=== PATIENT | male | born 2000 | race Caucasian/White ===

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

== ENCOUNTER → 2019-02-01 11:10 | Outpatient (CLI) | payer OTHER, SELFPAY ==
[2019-02-01 12:50] LABS: Thyroid Stim Hormone (TSH) 2.51 uIU/mL (0.358-3.74)
[2019-02-02 17:14] LABS: Anti-Thyroglobulin AB < 1.0 IU/mL (0.0-0.9); Thyroglobulin, Serum Qt. 1.4 ng/mL (1.4-29.2)
== END ==
PROVIDERS: Family Provider Pediatrics; PCP Pediatrics
DX: C73 Malignant neoplasm of thyroid gland (principal)
CPT/HCPCS: 36415; 84432; 84443; 86800

== ENCOUNTER → 2019-06-27 11:29 | Outpatient (CLI) | payer OTHER, SELFPAY ==
[2019-06-27 12:46] LABS: Thyroid Stim Hormone (TSH) 2.06 uIU/mL (0.358-3.74)
[2019-06-29 11:28] LABS: Anti-Thyroglobulin AB < 1.0 IU/mL (0.0-0.9); Thyroglobulin, Serum Qt. 1.6 ng/mL (1.4-29.2)
== END ==
PROVIDERS: PCP Pediatrics
DX: C73 Malignant neoplasm of thyroid gland (principal)
CPT/HCPCS: 36415; 84432; 84443; 86800

== ENCOUNTER 2020-08-20 10:32 | Outpatient (RCR) | payer OTHER, SELFPAY | END 2020-09-24 23:59 | LOC: IMMUN 10:32 | PROVIDERS: PCP Pediatrics; Visit Provider Family Medicine | DX: Z23 Encounter for immunization (principal) | CPT/HCPCS: 0001A; 0002A; 91300 ==

== ENCOUNTER → 2020-10-26 11:39 | Outpatient (CLI) | payer OTHER, SELFPAY ==
[2020-10-26 12:39] LABS: Thyroid Stim Hormone (TSH) 1.43 uIU/mL (0.358-3.74)
[2020-10-29 11:50] LABS: Anti-Thyroglobulin AB < 1.0 IU/mL (0.0-0.9); Thyroglobulin, Serum Qt. 1.8 ng/mL (1.4-29.2)
== END ==
PROVIDERS: PCP Pediatrics
DX: C73 Malignant neoplasm of thyroid gland (principal)
CPT/HCPCS: 36415; 84432; 84443; 86376; 86800

== ENCOUNTER → 2022-07-20 | Outpatient (CLI) | payer OTHER, SELFPAY ==
[2022-07-20 07:23] LABS: Anion Gap 3 (5-15); BUN 16 mg/dL (7-18); BUN/Creat Ratio 13.1 RATIO (10-20); Calcium,Total 9.7 mg/dL (8.5-10.1); Chloride 105 mmol/L (98-107); Cholesterol 187 mg/dL (200); Creatinine, Serum 1.22 mg/dL (0.70-1.30); EST Glomerular Filtration Rate 78 mL/min (>60); Est Glom Filt Rate - Afr Amer 95 mL/min (>60); Glucose 129 mg/dL (74-106); High Density Lipoprotein 51 mg/dL; Potassium 3.9 mmol/L (3.5-5.1); Sodium Level 139 mmol/L (136-145); Thyroid Stim Hormone (TSH) 2.67 uIU/mL (0.358-3.74); Triglycerides 68 mg/dL; Very Low Density Lipoprotein 14 mg/dL (5-40)
[2022-07-21 19:46] LABS: Thyroglobulin Antibody < 1.0 IU/mL (0.0-0.9)
== END | disposition home or self-care (01) ==
LOC: LAB 06:33
PROVIDERS: PCP Family Medicine
DX: Z00.00 Encounter for general adult medical examination without abnormal findings (principal); C73 Malignant neoplasm of thyroid gland; E89.0 Postprocedural hypothyroidism
CPT/HCPCS: 36415; 80048; 80061; 84439; 84443; 84481; 86800

== ENCOUNTER → 2022-08-04 | Outpatient (CLI) | payer OTHER, SELFPAY ==
--- NOTE | 2022-08-04 17:39 | US_ITS ---
STUDY: SCROTUM ULTRASOUND REASON FOR EXAM: Male, 21 years old. SCROTAL MASS- LT TECHNIQUE: Ultrasound evaluation of the scrotum was performed with color Doppler and static caceres-scale imaging. COMPARISON: None. FINDINGS: RIGHT TESTICLE INTRATESTICULAR: There is a normal size of the right testicle. The right testicle measures 5 cm x 2.9 cm x 2.1 cm. There is a homogenous echotexture. There is normal arterial and normal venous vascularity. There is no demonstrated right testicular mass or cyst. EXTRATESTICULAR: The epididymis is normal in size. The epididymis head measures 1.2 cm x 0.6 cm x 0.7 cm. There is normal vascularity of the epididymis. There is no demonstrated epididymal cystic structure. There is no demonstrated hydrocele. There is no demonstrated varicocele. There is no demonstrated extratesticular mass or cyst. LEFT TESTICLE INTRATESTICULAR: There is a normal size of the left testicle. The left testicle measures 4.1 cm x 3.2 cm x 1.9 cm. There is a homogenous echotexture. There is normal arterial and normal venous vascularity. There is no demonstrated left testicular mass or cyst. EXTRATESTICULAR: The epididymis is normal in size. The epididymis head measures 1 cm x 0.7 cm x 0.5 cm. There is normal vascularity of the epididymis. There is no demonstrated epididymal cystic structure. There is no demonstrated hydrocele. There are prominent extratesticular veins consistent with a varicocele. There is no demonstrated extratesticular mass or cyst. US/Testicular with Arterial Flow IMPRESSION: The left testicular mass corresponds to a varicocele. Electronically Signed: Naveed Boland MD at 15:11 EDT ,
== END | disposition home or self-care (01) ==
LOC: US 17:36
PROVIDERS: PCP Family Medicine; Referring Provider Family Medicine; Visit Provider Family Medicine
DX: N50.89 Other specified disorders of the male genital organs (principal)
CPT/HCPCS: 76870; 93976

== ENCOUNTER → 2024-10-02 | Outpatient (CLI) | payer BC, SELFPAY ==
[2024-10-02 18:29] LABS: PTHIN 77 pg/mL (11-61)
[2024-10-02 18:36] LABS: Anion Gap 10 (5-15); BUN 15 mg/dL (4-19); BUN/Creat Ratio 12.8 RATIO (10-20); Calcium,Total 9.3 mg/dL (7.6-11.0); Carbon Dioxide 27.2 mmol/L (21.0-32.0); Chloride 105 mmol/L (98-108); Cholesterol 178 mg/dL (<=200); Creatinine, Serum 1.13 mg/dL (0.70-1.20); EST Glomerular Filtration Rate 93 (>60); Glucose 98 mg/dL (70-99); High Density Lipoprotein 41 mg/dL; Low Density Lipoprotein Calc. 108 mg/dL; Potassium 4.3 mmol/L (3.3-5.1); Sodium Level 142 mmol/L (133-145); Triglycerides 148 mg/dL; Very Low Density Lipoprotein 30 mg/dL (5-40); cholesterol:hdl ratio screen 4.35
--- OUTSIDE RECORDS SUMMARY | 2024-10-02 23:11 | XMS RPT_ITS | CCD ---
Author Organization [facility] Care Team Providers Care Warehouse Administrative Assistant Name Role Phone JNOO HUERTA Attending UnavailGRAYSON Gomez Primary Care Unavailable Grayson Archuleta MD Primary Care Provider [phone] SHARON TIJERINA Attending Unavailable Ced Dunlap Primary Care Unavailable SHARON TIJERINA Referring Unavailable Ced Dunlap Referring Unavailable Ced Dunlap Attending Ced Lockett Primary Care Unavailable Grayson Archuleta MD Primary Care Provider [phone] Grayson Archuleta MD Primary Care Provider [phone] Unavailable Primary Care Provider UnavailJACQUIE iMller Attending GRAYSON Oglesby Primary Care Unavailable JACQUIE FELIPE Referring GRAYSON Oglesby Primary Care Unavailable Medications Current Medications Medication Drug Class(es) Dates Sig (Normalized) Sig (Original) calcium phosphate dibas/vit D3 (VITAMIN D, WITH CALCIUM, ORAL) (9 sources) calcium phosphat e dibas/vit D3 (VITAMIN D, WITH CALCIUM, ORAL) Take by mouth. Active calcium phosphat e dibas/vit D3 (VITAMIN D, WITH CALCIUM, ORAL) Take by mouth. 0 Active Comment on above: Take by mouth. cholecalciferol, vitamin D3, (VITAMIN D3 ORAL) (6 sources) cholecalciferol, vitamin D3, (VITAMIN D3 ORAL) Take by mouth. Active cholecalciferol, vitamin D3, (VITAMIN D3 ORAL) Take by mouth. 0 Active Comment on above: Take by mouth. levothyroxine sodium 0.075 mg oral tablet (11 sources) l-Thyroxine Start: 07-03-2022 End: 08-18-2024 levothyroxine (SYNTHROID) 75 mcg tablet Take 1 tablet by mouth once daily. Except Wednesday take 2 tablets. (total 8 tabletsweekly) 32 tablet 1 08/18/2024 Active Start: 03-22-2021 End: 03-26-2022 levothyroxine (SYNTHROID) 75 mcg tablet Take 1 tablet by mouth once daily. Except Wednesday take 2 tablets. (total 8 tabletsweekly) 96 tablet 0 03/26/2022 Active Comment on above: Take 1 tablet by kobi th once daily. Except Wednesday take 2 tablets. (total 8 tabletsweekly) Take 1 tablet by kobi th once daily. Except Wednesday take 2 tablets. (total 8 tablets weekly) Multivitamin capsule (9 sources) take 1 capsule by mouth once daily Multivitamin capsule Take 1 capsule by mouth once daily. Active take 1 capsule by mouth once ghulam ly Multivitamin capsule Take 1 capsule by mouth once daily. 0 Active Comment on above: Take 1 capsule by mo uth once daily. Problems Active Problems Problem Classification Problem Date Documented Da te Episodic/Chronic Cancer of thyroid (17 sources) Papillary thyroid carcinoma; Translations: [Malignant neoplasm of thyroid gland] Onset: 07-03-2019 07-03-2019 Chronic Other male genital disorders (1 source) Other specified disorders of the male genital organs; Translations: [Other specified disorders of the male genital organs] Onset: 08-04-2022 Episodic Past or Other Problems Problem Classification Problem Date Documented Da te Episodic/Chronic Neoplasms of unspecified nature or uncertain behavior (4 sources) Neoplasm of uncertain behavior of skin; Translations: [Neoplasm of uncertain behavior of skin] Onset: 10-29-2011 Resolved: 10-24-2013 10-24-2013 Episodic Other upper respiratory disease (9 sources) Epistaxis; Translations: [Epistaxis] Onset: 10-25-2014 10-25-2014 Episodic Thyroid disorders (4 sources) Uninodular goiter; Translations: [Nontoxic single thyroid nodule] Onset: 11-14-2018 Resolved: 07-03-2019 07-03-2019 Chronic Results Test Name Value Interpretation Reference Range Facility [facility] 08-18-2024 IRAJ Telephone (ENSUMN) HANNAH ALBRIGHT ([id number]) 89 M Date Time Provider Department 08/18/24 JACQUIE FELIPE During your visit today, we recorded the following information about you: Leila Granados 08/18/2024 3:04 PM Signed Pt is requesting a refill on synthroid. He hasn't see his pcp in over a year and they can't refill it. He is totally out of it for about one week. Katrina Ward MD 08/18/2024 3:39 PM Signed Addended by: KATRINA WARD on: 08/18/2024 03:39 PM Modules accepted: Delmy Red 08/18/2024 4:33 PM Signed Called pt and advised of one month refill. Advised that his PCP will need to monitor his labwork and refills moving forward. Pt has appt this month with PCP and voices understanding. Delmy Hollingsworth RN Allergies As of Date: 08/18/2024 (No Known Allergies) Date Reviewed: 11/01/2023 Reviewed by: Missy Brewster OCCA - Fully Assessed Reason for Visit: Refill Request [94] Cmt: Pt is requesting a refill on synthroid. He hasn't see his pcp in over a year and they can't refill it. He is totally out of it for about one week. Order(s):levothyroxine (SYNTHROID) 75 mcg tabletTake 1 tablet by mouth once daily. Except Wednesday take 2 tablets. (total 8 tabletsweekly)Disp: 32 tabletRfl: 1 Prescriptions as of 08/18/2024 - levothyroxine (SYNTHROID) 75 mcg tablet Take 1 tablet by mouth once daily. Except Wednesday take 2 tablets. (total 8 tabletsweekly) - cholecalciferol, vitamin D3, (VITAMIN D3 ORAL) Take by mouth. - calcium phosphate dibas/vit D3 (VITAMIN D, WITH CALCIUM, ORAL) Take by mouth. - Multivitamin capsule Take 1 capsule by mouth once daily. Problem List As Of Date 08/18/2024 Noted Resolved Neoplasm of uncertain behavior of skin [D48.5] 10/29/2011 10/24/2013 Epistaxis, recurrent [R04.0] 10/25/2014 Solitary thyroid nodule [E04.1] 11/14/2018 07/03/2019 Papillary thyroid carcinoma (HCC) [C73] 07/03/2019 Prescriptions ordered this encounter Disp Refills Start End LEVOTHYROXINE 75 MCG TABLET 32 t* 1 08/18/2024 Sig: Take 1 tablet by mouth once daily. Except Wednesday take 2 tablets. (total 8 tabletsweekly) Medications Discontinued During This Encounter Prescriptions - levothyroxine (SYNTHROID) 75 mcg tablet (Discontinued) Take 1 tablet by mouth once daily. Except Wednesday take 2 tablets. (total 8 tabletsweekly) Encounter Status:Closed by LEILA GRANADOS on 08/18/24 [facility] CNOVon 11-01-2023 CNOV Office Visit (ENSUMN ) HANNAH ALBRIGHT ([id number]) 89 M Date Time Provider Department 11/01/23 2:45 PM JACQUIE FELIPE During your visit today, we recorded the following information about you: Pulse Blood pressure Weight Height 80/minute 141/85 75.5 kg 1.855 m Missy Brewster OCCA 11/01/2023 2:40 PM Signed Thank you for choosing the [facility] Department of Endocrinology, Diabetes and Metabolism. Did you know that you need to call 48 hours in advance of your scheduled visit, if you are unable to make your appointment? The Endocrinology and Metabolism [place] thanks you for your commitment, because patients not showing to their appointment results in a lost opportunity for patients to receive [facility] health care at the [facility]. To Cancel an appointment, please choose one of the following: - Call the Appointment Call Center at [phone] - From [facility], Go to Appointments - Cancel Appts If cancelling, consider your need to reschedule to prevent further delays in your care. To Schedule an appointment, please choose one of the following: - Call the Appointment Call Center at [phone] - From [facility], Go to Appointments - Request an Appt Jacquie Felipe MD 11/03/2023 8:45 AM Signed I saw your patient Hannah Albright in longitudinal follow-up for papillary thyroid cancer. He is now 5 years after undergoing a left thyroid lobectomy for a 1.5 cm contained papillary cancer. Given this finding, he did not require radioiodine ablation. He is on 75 mcg thyroid hormone tablets taking a total of 8 on a weekly basis. He has felt well on this dose with no hyperthyroid type symptoms. A TSH done on 10/30/2023 measured 2.000. I feel that this level is appropriate for him. In the office today he is well-appearing. His transverse cervical incision remains well-healed. Palpation of the neck reveals no palpable tissue within the left thyroid bed. The right lobe is barely palpable. I can appreciate no nodularity nor any palpable neck nodes. Ultrasound examination was performed in the office. This confirms surgical absence of the left thyroid lobe and isthmus. The right lobe is of a normal size and normal background echotexture. There are no thyroid nodules. I can appreciate no worrisome lymph nodes in either central neck compartment nor in either jugular chain. I am pleased that he continues to do well without evidence of recurrent disease. I plan to see him back in the office in 1 years time with a TSH prior to that visit. I appreciate being involved in the care of your patient and please feel free to contact me should you have additional questions. Sincerely, Jacquie Felipe MD Allergies As of Date: 11/01/2023 (No Known Allergies) Date Reviewed: 11/01/2023 Reviewed by: Missy Brewster OCCA - Fully Assessed Reason for Visit: Follow Up [171] Primary Visit Diagnosis:Thyroid cancer (HCC) [C73] Other Visit Diagnosis:Papillary thyroid carcinoma (HCC) [C73] Order(s):US THYROID/PARATHYROID (POC) ENDO USE ONLY [8304320] Order #: [id number]. #:[id number]: 1 Prescriptions as of 11/03/2023 - cholecalciferol, vitamin D3, (VITAMIN D3 ORAL) Take by mouth. - levothyroxine (SYNTHROID) 75 mcg tablet Take 1 tablet by mouth once daily. Except Wednesday take 2 tablets. (total 8 tabletsweekly) - calcium phosphate dibas/vit D3 (VITAMIN D, WITH CALCIUM, ORAL) Take by mouth. - Multivitamin capsule Take 1 capsule by mouth once daily. Problem List As Of Date 11/01/2023 Noted Resolved Neoplasm of uncertain behavior of skin [D48.5] 10/29/2011 10/24/2013 Epistaxis, recurrent [R04.0] 10/25/2014 Solitary thyroid nodule [E04.1] 11/14/2018 07/03/2019 Papillary thyroid carcinoma (HCC) [C73] 07/03/2019 Other instructions from your clinician: Thank you for choosing the [facility] Department of Endocrinology, Diabetes and Metabolism. Did you know that you need to call 48 hours in advance of your scheduled visit, if you are unable to make your appointment? The End[facility]inology [facility] Metabolism [place] thanks you for your commitment, because patients not showing to their appointment results in a lost opportunity for patients to receive [facility] health care at the [facility]. To Cancel an appointment, please choose one of the following: - Call the Appointment Call Center at [phone] - From [facility], Go to Appointments - Cancel Appts If cancelling, consider your need to reschedule to prevent further delays in your care. To Schedule an appointment, please choose one of the following: - Call the Appointment Call Center at [phone] - From [facility], Go to Appointments - Request an Appt Disposition: Return in about 1 year (around 10/31/2024). Follow-up and Disposition History for Encounter Date Provider Department Center 11/01/2023 [id number], A (more content not included)... Normal [facility] US Thyroid glandon [facility] Radiology Study observation (narrative) [facility] TSH SerPl-aCncon 10-30-2023 TSH Qn 2.000 m[IU]/L Normal 0.270-4.200 [facility] Comment on above: Order Comment: Speci men Type: BLOOD SPECIMEN Ordering Facility: [facility] Address: [address] [place] [address] Performed By: #### 3 016-3 #### [facility] CLIA [id number] [address] [id number] [place] Testicular with Arterial Facundo won 08-04-2022 Testicular with Arterial Flow [facility] Services [address] [place] [address] Testicular with Arterial Flow MR#: [id number] Acct: [id number] Name: HANNAH ALBRIGHT Rep #: [id number] : 2000 M 21 From: Naveed rangel MD PCP: Dr. Ced Dunlap MD Status: REG CLI Study: Testicular with Arterial Flow Date of Exam: Exam# [id number] Ordering Dr: Ced Dunlap MD STUDY: SCROTUM ULTRASOUND REASON FOR EXAM: Male, 21 years old. SCROTAL MASS- LT TECHNIQUE: Ultrasound evaluation of the scrotum was performed with color Doppler and static caceres-scale imaging. COMPARISON: None. FINDINGS: RIGHT TESTICLE INTRATESTICULAR: There is a normal size of the right testicle. The right testicle measures 5 cm x 2.9 cm x 2.1 cm. There is a homogenous echotexture. There is normal arterial and normal venous vascularity. There is no demonstrated right testicular mass or cyst. EXTRATESTICULAR: The epididymis is normal in size. The epididymis head measures 1.2 cm x 0.6 cm x 0.7 cm. There is normal vascularity of the epididymis. There is no demonstrated epididymal cystic structure. There is no demonstrated hydrocele. There is no demonstrated varicocele. There is no demonstrated extratesticular mass or cyst. LEFT TESTICLE INTRATESTICULAR: There is a normal size of the left testicle. The left testicle measures 4.1 cm x 3.2 cm x 1.9 cm. There is a homogenous echotexture. There is normal arterial and normal venous vascularity. There is no demonstrated left testicular mass or cyst. EXTRATESTICULAR: The epididymis is normal in size. The epididymis head measures 1 cm x 0.7 cm x 0.5 cm. There is normal vascularity of the epididymis. There is no demonstrated epididymal cystic structure. There is no demonstrated hydrocele. There are prominent extratesticular veins consistent with a varicocele. There is no demonstrated extratesticular mass or cyst. US/Testicular with Arterial Flow IMPRESSION: The left testicular mass corresponds to a varicocele. Electronically Signed: Naveed Boland MD at 15:11 EDT , CC: Dr. Ced Dunlap MD Take Out Waitress: Signed Normal [facility] Thyroglobulin Antibodyon TG AB < 1.0 Normal 0.0-0.[address] [facility] Comment on above: Order Comment: LIPID ,TSH,BMP,T3F,T4F FOR DR DUNLAP TSH,THYROGLUBULIN AB FOR DR FELIPE Result Comment: Thyr oglobulin Antibody measured by [employer] Methodology Performed at: - [facility] [address] [id number] Cd Mixer: Yash Hancock PhD, Phone: [phone] Performed By: #### L 500.2500, L506.0400, L500.4100, L501.9520, L3300.7027, L501.14675 #### [facility] [address] [place], [address] Basic Metabolic Profile (BMP )on 07-20-2022 BUN/CRE 13.1 RATIO Normal 10-[address] [facility] Comment on above: Order Comment: PT WA SNT FASTING HAD CEREAL AT 5:15AM LIPID,TSH,BMP,T3F,T4F FOR DR DUNLAP TSH,THYROGLUBULIN AB FOR DR FELIPE Performed By: #### L 500.2500, L506.0400, L500.4100, L501.9520, L3300.7027, L501.98838 #### [facility] [address] [place], [address] CA,Total 9.7 mg/dL Normal 8.5-10.[address] [facility] Comment on above: Order Comment: PT WA SNT FASTING HAD CEREAL AT 5:15AM LIPID,TSH,BMP,T3F,T4F FOR DR DUNLAP TSH,THYROGLUBULIN AB FOR DR FELIPE Performed By: #### L 500.2500, L506.0400, L500.4100, L501.9520, L3300.7027, L501.73968 #### [facility] [address] [place], [address] Chloride [Moles/Vol] 105 mmol/L Normal 98-[address] [facility] Comment on above: Order Comment: PT WA SNT FASTING HAD CEREAL AT 5:15AM LIPID,TSH,BMP,T3F,T4F FOR DR DUNLAP TSH,THYROGLUBULIN AB FOR DR FELIPE Performed By: #### L 500.2500, L506.0400, L500.4100, L501.9520, L3300.7027, L501.08323 #### [facility] [address] [place], [place], [phone] (665) CO2 [Moles/Vol] 31.0 mmol/L Normal 21.0-32.[address] [facility] Comment on above: Order Comment: PT WA SNT FASTING HAD CEREAL AT 5:15AM LIPID,TSH,BMP,T3F,T4F FOR DR DUNLAP TSH,THYROGLUBULIN AB FOR DR FELIPE Performed By: #### L 500.2500, L506.0400, L500.4100, L501.9520, L3300.7027, L501.98925 #### [facility] [address] [place], [place], [phone] ([phone]) Creatinine [Mass/Vol] 1.22 mg/dL Normal 0.70-1.[address] [facility] Comment on above: Order Comment: PT WA SNT FASTING HAD CEREAL AT 5:15AM LIPID,TSH,BMP,T3F,T4F FOR DR DUNLAP TSH,THYROGLUBULIN AB FOR DR FELIPE Result Comment: The validity of the calculated GFR GFRAA in patients over 70 years has not been determined. Clinical correlation is essential. Performed By: #### L 500.2500, L506.0400, L500.4100, L501.9520, L3300.7027, L501.15482 #### [facility] [address] [place], [place], [id number] EST GFR - AA 95 mL/min Normal >[address] [facility] Comment on above: Order Comment: PT WA SNT FASTING HAD CEREAL AT 5:15AM LIPID,TSH,BMP,T3F,T4F FOR DR DUNLAP TSH,THYROGLUBULIN AB FOR DR FELIPE Result Comment: Afri can Uzbek GFR Calc Performed By: #### L 500.2500, L506.0400, L500.4100, L501.9520, L3300.7027, L501.38423 #### [facility] [address] [place], [place], [phone] GAP 3 Low 5-[address] [facility] Comment on above: Order Comment: PT WA SNT FASTING HAD CEREAL AT 5:15AM LIPID,TSH,BMP,T3F,T4F FOR DR DUNLAP TSH,THYROGLUBULIN AB FOR DR FELIPE Performed By: #### L 500.2500, L506.0400, L500.4100, L501.9520, L3300.7027, L501.29133 #### [facility] [address] [place], [place], [phone] GFR/1.73 sq M.predicted among non-blacks MDRD (S/P/Bld) [Vol rate/Area] 78 mL/min/{1.73_m2} Normal >[address] [facility] Comment on above: Order Comment: PT WA SNT FASTING HAD CEREAL AT 5:15AM LIPID,TSH,BMP,T3F,T4F FOR DR DUNLAP TSH,THYROGLUBULIN AB FOR DR FELIPE Result Comment: Non- GFR Calc Performed By: #### L 500.2500, L506.0400, L500.4100, L501.9520, L3300.7027, L501.24534 #### [facility] [address] [place], [address] Glucose [Mass/Vol] 129 mg/dL High 74-106 [facility] Comment on above: Order Comment: PT WA SNT FASTING HAD CEREAL AT 5:15AM LIPID,TSH,BMP,T3F,T4F FOR DR DUNLAP TSH,THYROGLUBULIN AB FOR DR FELIPE Result Comment: Fast ing Glucose result greater than or equal to 126 mg/dL suggests DIABETES MELLITUS per A.D.A. criteria. Performed By: #### L 500.2500, L506.0400, L500.4100, L501.9520, L3300.7027, L501.88961 #### [facility] [address] [place], [address] Potassium [Moles/Vol] 3.9 mmol/L Normal 3.5-5.[address] [facility] Comment on above: Order Comment: PT WA SNT FASTING HAD CEREAL AT 5:15AM LIPID,TSH,BMP,T3F,T4F FOR DR DUNLAP TSH,THYROGLUBULIN AB FOR DR FELIPE Performed By: #### L 500.2500, L506.0400, L500.4100, L501.9520, L3300.7027, L501.51867 #### [facility] [address] [place], [address] Sodium [Moles/Vol] 139 mmol/L Normal 136-145 [facility] Comment on above: Order Comment: PT WA SNT FASTING HAD CEREAL AT 5:15AM LIPID,TSH,BMP,T3F,T4F FOR DR DUNLAP TSH,THYROGLUBULIN AB FOR DR FELIPE Performed By: #### L 500.2500, L506.0400, L500.4100, L501.9520, L3300.7027, L501.94776 #### [facility] [address] [place], [address] Urea nitrogen [Mass/Vol] 16 mg/dL Normal 7-[address] [facility] Comment on above: Order Comment: PT WA SNT FASTING HAD CEREAL AT 5:15AM LIPID,TSH,BMP,T3F,T4F FOR DR DUNLAP TSH,THYROGLUBULIN AB FOR DR FELIPE Performed By: #### L 500.2500, L506.0400, L500.4100, L501.9520, L3300.7027, L501.61328 #### [facility] [address] [place], [address] Basophil percentageon 2022 Chloride [Moles/Vol] 105 mmol/L 98-[address] [facility] Cholesterol [Mass/Vol] 187 mg/dL <[address] [facility] Comment on above: <200 mg/dL Desirable 200-240 mg/dL Borderline >240 mg/dL High Risk Glucose [Mass/Vol] 129 mg/dL 74-106 [facility] Comment on above: Fasting Glucose resu lt greater than or equal to 126 mg/dL suggests DIABETES MELLITUS per A.D.A. criteria. Potassium [Moles/Vol] 3.9 mmol/L 3.5-5.[address] [facility] Sodium [Moles/Vol] 139 mmol/L 136-145 [facility] Triglyceride [Mass/Vol] 68 mg/dL <[address] [facility] Comment on above: The drugs N-Acetylcy steine and Metamizole may falsely depress this assay.Serum Triglycerides Reference Interval Normal <150 mg/dL Borderline high 150 - 199 mg/dL High 200 - 499 mg/dL Very High > or = 500 mg/dL Free T3on 07-20-2022 Free T3 [Mass/Vol] 3.0 pg/mL Normal 2.18-3.98 [facility] Comment on above: Order Comment: PT WA SNT FASTING HAD CEREAL AT 5:15AM LIPID,TSH,BMP,T3F,T4F FOR DR DUNLAP TSH,THYROGLUBULIN AB FOR DR FELIPE Performed By: #### L 500.2500, L506.0400, L500.4100, L501.9520, L3300.7027, L501.42230 #### [facility] [address] [place], [address] Laboratory - Chemistry and C hemistry - challengeon 07-20-2022 CO2 [Moles/Vol] 31.0 mmol/L 21.0-32.[address] [facility] Free T4 [Mass/Vol] 1.10 ng/dL 0.76-1.46 [facility] Urea nitrogen/Creatinin e [Mass ratio] 13.1 mg/mg 10-[address] [facility] Lipid Profileon 07-20-2022 Cholesterol [Mass/Vol] 187 mg/dL Normal [address] [facility] Comment on above: Order Comment: PT WA SNT FASTING HAD CEREAL AT 5:15AM LIPID,TSH,BMP,T3F,T4F FOR DR DUNLAP TSH,THYROGLUBULIN AB FOR DR FELIPE Result Comment: <200 mg/dL Desirable 200-240 mg/dL Borderline >240 mg/dL High Risk Performed By: #### L 500.2500, L506.0400, L500.4100, L501.9520, L3300.7027, L501.32905 #### [facility] [address] [place], [address] Cholesterol in HDL [Mass/Vol] 51 mg/dL Normal [facility] Comment on above: Order Comment: PT WA SNT FASTING HAD CEREAL AT 5:15AM LIPID,TSH,BMP,T3F,T4F FOR DR DUNLAP TSH,THYROGLUBULIN AB FOR DR FELIPE Result Comment: The drugs N-Acetylcysteine and Metamizole may falsely depress this assay. Reference Range HDL <40 mg/dL Low HDL Cholesterol HDL >or= 60 mg/dL High HDL Cholesterol Performed By: #### L 500.2500, L506.0400, L500.4100, L501.9520, L3300.7027, L501.04153 #### [facility] [address] [place], [address] Cholesterol in LDL [Mass/Vol] 122 mg/dL Normal 0-[address] [facility] Comment on above: Order Comment: PT WA SNT FASTING HAD CEREAL AT 5:15AM LIPID,TSH,BMP,T3F,T4F FOR DR DUNLAP TSH,THYROGLUBULIN AB FOR DR FELIPE Performed By: #### L 500.2500, L506.0400, L500.4100, L501.9520, L3300.7027, L501.90190 #### [facility] [address] [place], [place], [phone] Cholesterol in VLDL [Mass/Vol] 14 mg/dL Normal 5-[address] [facility] Comment on above: Order Comment: PT WA SNT FASTING HAD CEREAL AT 5:15AM LIPID,TSH,BMP,T3F,T4F FOR DR DUNLAP TSH,THYROGLUBULIN AB FOR DR FELIPE Performed By: #### L 500.2500, L506.0400, L500.4100, L501.9520, L3300.7027, L501.73665 #### [facility] [address] [place], [place], [phone] Triglyceride [Mass/Vol] 68 mg/dL Normal [facility] Comment on above: Order Comment: PT WA SNT FASTING HAD CEREAL AT 5:15AM LIPID,TSH,BMP,T3F,T4F FOR DR DUNLAP TSH,THYROGLUBULIN AB FOR DR FELIPE Result Comment: The drugs N-Acetylcysteine and Metamizole may falsely depress this assay. Serum Triglycerides Reference Interval Normal <150 mg/dL Borderline high 150 - 199 mg/dL High 200 - 499 mg/dL Very High > or = 500 mg/dL Performed By: #### L 500.2500, L506.0400, L500.4100, L501.9520, L3300.7027, L501.69471 #### [facility] [address] [place], [place], [phone] No Panel Informationon 07-20 Estimated GFR (MDRD) Amer 95 mL/min >[address] [facility] Comment on above: GFR Calc Estimated GFR (MDRD) Non-Af Amer 78 mL/min >[address] [facility] Comment on above: Non- GFR Calc Free Triiodothyronine (T3) pg/dL 3.0 pg/mL 2.18-3.[address] [facility] [facility] [facility] Thyroglobulin Antibody < 1.0 IU/mL 0.0-0.[address] [facility] Comment on above: Thyroglobulin Antibo dy measured by TreatFeedMethodologyPerformed at: CB - [facility] [id number] [place], [place] [id number] Director: Yash Hancock PhD, Phone: [phone] Thyroid Stimulating Hormone (TSH) 2.67 uIU/mL 0.358-3.[address] [facility] Serum or plasma calcium marva urement (mass/volume)on 07-20-2022 Calcium [Mass/Vol] 9.7 mg/dL 8.5-10.1 [facility] Serum or plasma cholesterol in HDL measurement (mass/volume)on 07-20-2022 Cholesterol in HDL [Mass/Vol] 51 mg/dL >[address] [facility] Comment on above: The drugs N-Acetylcy steine and Metamizole may falsely depress this assay. Reference Range HDL <40 mg/dL Low HDL Cholesterol HDL >or= 60 mg/dL High HDL Cholesterol Serum or plasma cholesterol in VLDL measurement (mass/volume)on 07-20-2022 Cholesterol in VLDL [Mass/Vol] 14 mg/dL 5-[address] [facility] Serum or plasma creatinine m easurement (mass/volume)on 07-20-2022 Creatinine [Mass/Vol] 1.22 mg/dL 0.70-1.[address] [facility] Comment on above: The validity of the calculated GFR & GFRAA in patients over 70 years has not been determined. Clinical correlation is essential. Serum or plasma low density lipoprotein (LDL) cholesterol measurement (mass/volume)on 07-20-2022 Cholesterol in LDL [Mass/Vol] 122 mg/dL 0-[address] [facility] Serum or plasma urea nitroge n measurement (mass/volume)on 07-20-2022 Urea nitrogen [Mass/Vol] 16 mg/dL 7-[address] [facility] T4 Free Directon 07-20-2022 T4 FREE DIRECT 1.10 ng/dL Normal 0.76-1.[address] [facility] Comment on above: Order Comment: PT WA SNT FASTING HAD CEREAL AT 5:15AM LIPID,TSH,BMP,T3F,T4F FOR DR DUNLAP TSH,THYROGLUBULIN AB FOR DR FELIPE Performed By: #### L 500.2500, L506.0400, L500.4100, L501.9520, L3300.7027, L501.40222 #### [facility] [address] [place], [place], [address] Thin prep Papanicolaou smear with manual screeningon 07-20-2022 Thin prep Papanicolaou smear with manual screening 3 5-[address] [facility] Thyroid Stim Hormone (TSH)on 07-20-2022 TSH 2.67 uIU/mL Normal 0.358-3.[address] [facility] Comment on above: Order Comment: PT WA SNT FASTING HAD CEREAL AT 5:15AM LIPID,TSH,BMP,T3F,T4F FOR DR DUNLAP TSH,THYROGLUBULIN AB FOR DR FELIPE Performed By: #### L 500.2500, L506.0400, L500.4100, L501.9520, L3300.7027, L501.74268 #### [facility] [address] [place], [place], [address] PROGRESSon 12-23-2018 PROGRESS HNO ID: [id number] Author: Sal Pisano (Fel) Service: Endocrine Surgery Author Type: Fellow Type: Progress Notes Filed: 12/23/2018 8:10 AM Note Text: Subjective: Doing well. No incisional pain. Denies numbness, tingling, nausea. Up and ambulating without difficulty. Voiding well. ? Objective:? T. 36.7??HR 58, RR 16, 119/52 ? General: no acute distress, alert, he is dressed and ambulating in his room. HEENT: incision c/d/i with steristrip in place. Minimal swelling and bruising at superior aspect of incision. Not tender. Pulm: non-labored breathing; voice clear ? Assessment/Plan:?18 year old male, POD#1?s/p left thyroidectomy, hemodynamically stable with adequate pain control? He is doing very well. Ready for discharge home today. The usual discharge instructions were provided verbally and in writing. I also reviewed his home and new medications with him. Follow up has been arranged and communicated to the patient. ? Sal Pisano MD, MPH Endocrine Surgery Fellow [facility] ANES Gaby 12-22-2018 ANES POST HNO ID: [id number] Author: Sergio Romero Service: Anesthesiology Author Type: Anesthesiologist Type: Anesthesia PostOp Filed: 12/22/2018 4:41 PM Note Text: POST ANESTHESIA EVALUATION NOTE SERVICE DATE: 12/22/2018 SERVICE TIME: 4:41 PM : 2000 Vitals: 12/22/18 1144 12/22/18 1512 12/22/18 1600 12/22/18 1628 Temp: 36.8 ?C (98.3 ?F) 36.1 ?C (97 ?F) 36.3 ?C (97.3 ?F) 36.7 ?C (98.1 ?F) 12/22/18 1530 12/22/18 1545 12/22/18 1600 12/22/18 1628 BP: 108/62 111/68 119/76 125/75 12/22/18 1530 12/22/18 1545 12/22/18 1600 12/22/18 1628 Pulse: (!) 52 (!) 52 (!) 55 64 12/22/18 1530 12/22/18 1545 12/22/18 1600 12/22/18 1628 Resp: 18 16 14 16 12/22/18 1530 12/22/18 1545 12/22/18 1600 12/22/18 1628 SpO2: 97% 98% 100% 99% Validated Vital Signs: Yes POST ANES STATUS: No apparent anesthetic complications. The patient is appropriately hydrated with stable respiratory and cardiovascular status. Patient has safe and adequate airway control. The patient has appropriate pain relief and no significant post operative nausea or vomiting. The patient has achieved baseline mental status. Intra-Operative Events: No Significant Anesthesia Events Further assessment by Anesthesia Service: None Other Remarks: SIGNATURE: Sergio Romero MD PATIENT NAME: Hannah Albright DATE: December 22, 2018 TIME: 4:41 PM PAGER/CONTACT #: [phone] [facility] ANES PREOPon 12-22-2018 ANES PREOP HNO ID: [id number] Author: Sergio Romero Service: Anesthesiology Author Type: Anesthesiologist Type: Anesthesia PreOp Filed: 12/22/2018 12:55 PM Note Text: ANESTHESIOLOGY DAY OF SURGERY NOTE SERVICE DATE: 12/22/2018 SERVICE TIME: 12:55 PM : 2000 Procedure(s) (LRB): THYROIDECTOMY TOTAL (Bilateral) Surgeon(s): Jacquie Felipe Estimated body mass index is 20.45 kg/m? as calculated from the following: Height as of 12/21/18: 185.4 cm (6' 1). Weight as of 12/21/18: 70.3 kg (155 lb). Most recent hematocrit and potassium results: Hematocrit 51.5 12/21/2018 Potassium 4.5 12/21/2018 ANES DOS/PREOP NOTE: Vitals: 12/22/18 1144 BP: 117/74 Pulse: 64 Resp: 16 Temp: 36.8 ?C (98.3 ?F) SpO2: 100% ACTIVE PROBLEM LIST Epistaxis, Recurrent Solitary Thyroid Nodule PAST MEDICAL HISTORY Diagnosis Date - NEGATIVE MEDICAL HISTORY 2011 normal color vision PAST SURGICAL HISTORY Procedure Laterality Date - PAST SURGICAL HISTORY OF 08/1999 circumcision - PAST SURGICAL HISTORY OF tubes in ears - between 18 months and 1 years of age - PAST SURGICAL HISTORY OF 11/12/11 Excision of skin lesion Lt lower leg FAMILY HISTORY Problem Relation Age of Onset - other (negative family history) Other - No Known Problems Mother - No Known Problems Father - No Known Problems Sister - No Known Problems Brother - No Known Problems Maternal Grandfather - No Known Problems Brother Social History: Social History Tobacco Use - Smoking status: Never Smoker - Smokeless tobacco: Never Used Substance Use Topics - Alcohol use: Not on file - Drug use: Not on file No current facility-administered medications on file prior to encounter. Current Outpatient Medications on File Prior to Encounter: calcium phosphate dibas/vit D3 (VITAMIN D, WITH CALCIUM, ORAL) Take by mouth. Multivitamin capsule Take 1 capsule by mouth once daily. Current Facility-Administered Medications Medication Dose Route Frequency Provider Last Rate Last Dose - lidocaine 10 mg/mL (1 %) 1-2 mg injection (XYLOCAINE) 0.1-0.2 mL INTRADERMAL PRN Jacquie Felipe - lactated ringers infusion 75 mL/hr INTRAVENOUS CONTINUOUS Jacquie Siperstein 75 mL/hr at 12/22/18 1159 75 mL/hr at 12/22/18 1159 Allergies: ALLERGIES No Known Allergies DOS EXAM: Adequate NPO status: Yes Anesthetic risks, benefits, alternatives, personnel and consent discussed: Yes Patient agrees to proceed: Yes Previous Anesthesia: No history of adverse event. Airway Assessment: MP 1; Neck ROM: Full ROM without neurologic symptoms; Airway Evaluation: No significant abnormalities Symptoms of Sleep Apnea: None Dentition: Teeth intact Additional Physical Exam: Lungs: Patient health status unchanged since recent history and physical. See history and physical for exam findings. Cardiac: Patient health status unchanged since recent history and physical. See history and physical for exam findings. Additional Pertinent Findings: N/A Blood Products: Not anticipated for this procedure. Anesthetic Plan: General, Standard ASA Monitors Pain Management Plan: Parenteral or Oral ASA Class: 1 Other Medical Problems: None Chronic Beta Tomer medication administered within 24 hours: N/A I have interviewed and examined the patient. I have reviewed the medical record and/or the pre-anesthesia evaluation, pertinent labs, and test results. Significant changes in the patient's condition since the History and Physical, not otherwise documented in primary service progress notes: No This contains updated information obtained within 48 hours of Surgery/Procedure. SIGNATURE: Sergio Romero MD PATIENT NAME: Hannah Albright DATE: December 22, 2018 TIME: 12:55 PM CSN: [id number] [facility] NURSING PROGon 12-22-2018 NURSING PROG HNO ID: [id number] Author: Shireen HuertaRnMagdaleno Mclain RN Service: ? Author Type: Registered Nurse Type: Nursing Progress Note Filed: 12/22/2018 4:56 PM Note Text: Nursing Progress Note Patient Name: Hannah Albright Patient Location: [id number] Daily Note:1640 - Arrived from PACU via bed. HOB up 30 degrees. SCDs on. Patient aware to splint when coughing. Parents present. Cot ordered. This note was completed by: Shireen Mclain RN [facility] OPERATIVE NOon 12-22-2018 OPERATIVE NO HNO ID: [id number] Author: Jacquie Felipe Service: Endocrine Surgery Author Type: Physician Type: Operative Report Filed: 12/25/2018 5:37 PM Note Text: [facility] - Operative Report HANNAH ALBRIGHT : 2000 AGE: 18. SEX: M PATIENT TYPE: [place] [facility] [place] [facility] LOCATION: [facility] [place] ATTENDING PHYSICIAN: Jacquie Felipe MD CSN NUMBER: [id number] DATE OF SURGERY/PROCEDURE: 12/22/2018 INCISION/PROCEDURE START TIME: 1353 hours. INCISION CLOSE/PROCEDURE END TIME: Completion of skin closure, 1454 hours. PREOPERATIVE DIAGNOSIS: Suspected papillary thyroid cancer of the left thyroid lobe. POSTOPERATIVE DIAGNOSIS: Suspected papillary thyroid cancer of the left thyroid lobe. SURGEON: Jacquie Felipe MD CUT OFF MACHINE OPERATOR: Dr. Sal Pisano. SURGERY/PROCEDURE: Left thyroid lobectomy and isthmusectomy, intraoperative ultrasonography. ANESTHESIA: General. [facility] . COMPLICATIONS: None. ESTIMATED BLOOD LOSS: 5 cc. SPECIMEN: Left thyroid lobe and isthmus. HISTORY: The patient is a 18-year-old, who had a mass noted within the left lobe of the thyroid gland. Chest x-ray was unrevealing. Ultrasound had demonstrated 1.9 cm solid mass within the left lobe of the thyroid gland and on subsequent fine-needle aspiration that at his prior institution had favored nodular hyperplasia. Re-review of those slides here at the [facility] was suspicious for papillary thyroid cancer. At the time of his consultation at the [facility], ultrasound had demonstrated a 2 cm contained mass in the left lobe of the thyroid gland and no suspicion for maverick spread. After discussion regarding extensive surgery, he has elected to undergo a left thyroid lobectomy. FINDINGS: Ultrasound evaluation demonstrated a thyroid gland overall is a normal size and normal background echotexture. Located within the inferior aspect of the left thyroid lobe was a 2 cm hypoechoic mass. There were multiple peripheral calcifications and the edges were poorly demarcated corresponds with the previously aspirated lesion. Contralateral right lobe was entirely normal without nodules. No worrisome lymph nodes were identified in either central neck compartment nor in either jugular chain. At exploration, he was found to have a hard grossly well-encapsulated mass within the inferior aspect of the left thyroid lobe. No lymph nodes were identified in the anterior tracheal nor left central neck compartments for biopsy. Left lower parathyroid gland was located just inferior to lower pole of left lobe of the thyroid gland and what appeared to be cervical thymic tissue. The left upper parathyroid gland was located in its typical anatomic location. Both of these were of a normal size and consistency and were preserved. The left recurrent laryngeal nerve was of a relatively large caliber, ran in its usual anatomic course, and was preserved. Contralateral right lobe was not mobilized nor were the overlying strap muscles dissected. DESCRIPTION OF PROCEDURE: The patient was taken to the operating room, placed on the operating table in supine position. After induction of general endotracheal anesthesia, a beanbag support was used to elevate the thoracic spine. The neck was gently hyperextended. Ultrasound evaluation was performed using an [employer]Speakap Alpha 6 ultrasound machine with high-frequency linear array small parts transducer. The findings were as noted above. The images were electronically archived. The neck was sterilely prepped and draped. A 3.5 cm transverse incision was made inferior to the level of the thyroid isthmus and carried down through the platysma. Small superior and inferior subplatysmal flaps were raised. The left side of the neck only, the strap muscles were from one another from the anterior surface of the thyroid gland. There was no adherence between the area of the thyroid tumor and the overlying strap muscles. The superior and inferior borders of thyroid isthmus were dissected. Using an [employer] Harmonic Scalpel with FOCUS attachment, the individual branches of the inferior thyroid artery and vein on the left were ligated as they entered the gland. The middle thyroid vein branches as well as individual branches of the superior thyroid artery and vein were ligated as they entered the gland. This allowed the left thyroid lobe to be exteriorized through the incision and medially reflected. Left upper parathyroid gland was located well off the thyroid and preserved. The left recurrent laryngeal nerve was identified and with the nerve under direct vision, the vessels in the ligament of [place] were divided. The remaining attachments between the thyroid isthmus and the trachea were divided with the electrocautery. The Harmonic Scalpel was then used to transect the thyroid parenchyma at the junction of the isthmus and right lobe. The left thyroid lobe and isthmus were then submitted for permanent pathologic examination. The wound was irrigated and checked for hemostasis. The strap muscles were closed with individual layers of interrupted 4-0 Vicryl suture. The platysma similarly approximated. The skin was temporarily approximated with a running 3-0 Prolene suture. Skin sealed with glue Steri-Strip applied and the suture removed. The patient tolerated the procedure well and will be taken to recovery area. Dr. Felipe served as primary surgeon and was scrubbed from skin incision through completion of skin closure. As no qualified resident was available to help with this case, Dr. Sal Pisano was asked to serve as assistant media buyer. She provided assistance with mobilization, vascular division, and closure. DRAINS: None. Jacquie Felipe MD :[id number] /[id number] cc: [facility] PROGRESSon 12-22-2018 PROGRESS HNO ID: [id number] Author: Sal Pisano (Fel) Service: Endocrine Surgery Author Type: Fellow Type: Progress Notes Filed: 12/22/2018 4:16 PM Note Text: POD 0-left hemithryoidectomy Pt seen again in PACU. He is awake. Minimal pain. No concerns. On exam, appears well. No distress. Voice is clear. AVSS. Plan: discussed with patient re: synthroid hormone replacement and prescription, as well as intraoperative findings. Will reassess tomorrow. Plan for discharge home tomorrow. [facility] PROGRESS HNO ID: [id number] Author: Sal Pisano (Fel) Service: Endocrine Surgery Author Type: Fellow Type: Progress Notes Filed: 12/22/2018 3:47 PM Note Text: POD 0-Left hemithyroidectomy Patient seen in PACU. He is sleeping comfortably. No concerns from PACU nurse. Vital signs are stable. Incision is clean and dry, no hematoma. Plan: Continue with current management plan. Will reassess for discharge home tomorrow. Dr. Felipe has updated the patient's family. [facility] PT EDon 12-22-2018 PT ED HNO ID: [id number] Author: Ronda Alvarado) RAQUEL Armstrong Service: ? Author Type: Registered Nurse Type: Patient Education Filed: 12/22/2018 11:46 AM Note Text: PRE OP LEARNING ASSESSMENT PROCEDURE/SURGERY: SURGERY: preop READINESS TO LEARN COGNITIVE ABILITY: Alert and oriented MOTIVATION TO LEARN: Eager FAMILY SUPPORT: High - Very involved in pt care PATIENT LEARNS BEST BY: Individual Instruction FACTORS AFFECTING LEARNING: None PHYSICAL LIMITATIONS AFFECTING LEARNING: None Electronically Signed By: Ronda Armstrong RN In Department: [facility] SURGERY [facility] SURGICAL PATHOLOGYon 019 SURGICAL PATHOLOGY Specimen #: [id number] Submitting Physician: JACQUIE FELIPE FINAL DIAGNOSIS Left thyroid lobe and isthmus, excision - 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 - No parathyroid gland tissue seen. - See comment. [facility] 12/27/2018 COMMENT The papillary thyroid carcinoma (1.5 cm) in the left thyroid lobe is the conventional (papillary) type. Lymphatic invasion, including intralymphatic psammoma bodies, is present. Vascular invasion and extrathyroidal extension were not identified. This carcinoma does not involve the margins of excision (closest < 0.1 cm). The pathologic stage is pT1b pNX. Dr. Noaln Arora was consulted and he agrees with the diagnosis of papillary thyroid carcinoma. SYNOPTIC REPORT OF JACQUES PATHOLOGIC FINDINGS LEFT THYROID LOBE AND ISTHMUS: Procedure: Left lobectomy with isthmusectomy (hemithyroidectomy) Tumor Focality: Unifocal Tumor Site: Left Lobe Tumor Size: Greatest Dimension: 1.5 cm Histologic Type: Papillary carcinoma, classic (usual, conventional) Margins: Margins uninvolved by carcinoma Angioinvasion (Vascular Invasion): Not identified Lymphatic Invasion: Present Extrathyroidal Extension: Not identified Regional lymph nodes: No lymph nodes submitted or found Pathologic Stage Classification (pTNM, AJCC 8th ed) TNM Descriptors: Not applicable Primary Tumor (pT): pT1b: Tumor > 1 cm but <= 2 cm in greatest dimension, limited to the thyroid Regional Lymph Nodes (pN): pNX: Regional lymph nodes cannot be assessed Distant Metastasis (pM): Not applicable/Not confirmed pathologically in this case Ed Monroy M.D. (Electronic Signature) SPECIMEN SUBMITTED A: LEFT THYROID LOBE AND ISTHMUS CLINICAL DATA LEFT THYROID NODULE; LEFT THYROID LOBECTOMY GROSS DESCRIPTION Received in formalin is a specimen consisting of a left thyroid lobe and isthmus. The specimen weighs 18.2 grams. The left thyroid lobe measures 4.0 x 1.7 x 1.2 cm and the isthmus measures 2.0 x 1.2 x 0.5 cm. The external surface is inked in black. The specimen is sectioned to reveal a arenas-pink lobulated nodule in the inferior aspect of the left thyroid lobe, measuring 1.5 x 1.2 x 1.1 cm. It approximates the inked capsular surface. High Pressure Kettle Operator sections are submitted as follows: A1 superior aspect, left thyroid lobe; A2-A5 entire nodule, left thyroid lobe; A6 section of isthmus. JOURDAN/lavonne 12/23/2018 [place] [address] Date of Report: 12/28/2018 Date of Procedure: 12/22/2018 Date of Receipt: 12/22/2018 Submitted by: JACQUIE FELIPE Location: [facility] Diagnostic interpretation performed at [place] [address]. [place] Number: [id number] [facility] HOSPon 12-13-2018 HOSP Patient:Yudy Albright MRN: Height:6' 1(1.854 m) Weight:155 lb (70.308 kg) Outpatient Medications as of 12/22/18: calcium phosphate dibas/vit D3 (VITAMIN D, WITH CALCIUM, ORAL) Multivitamin capsule Admission/Clinic Administered Medications as of 12/22/18: lidocaine 10 mg/mL (1 %) 1-2 mg injection (XYLOCAINE) lactated ringers infusion Problem List: Epistaxis, recurrent [R04.0] Solitary thyroid nodule [E04.1] Allergies: No Known Allergies Date Verified:12/22/18 Lab Values Lab Value Units Date High Low POTA* 4.5 mmol/L 12/21/2018 5.1 3.7 MUNIR* 51.5 % 12/21/2018 51.0 39.0 Progress Notes (ENDO SURG MAIN): Kiarra Saini, RN, RN 12/21/2018 9:24 AM Signed AMBULATORY PATIENT EDUCATION TOPIC: TOTAL THYROIDECTOMY READINESS TO LEARN COGNITIVE ABILITY: Alert and oriented MOTIVATION TO LEARN: Interested FAMILY SUPPORT: High - Very involved in pt care INSTRUCTION PROVIDED TO: Patient and family member PATIENT LEARNS BEST BY: Individual Instruction Written Instruction - Hand-outs Verbal Instruction FACTORS AFFECTING LEARNING: None PHYSICAL LIMITATIONS AFFECTING LEARNING: None LEARNING RESPONSE DIAGNOSIS: THYROID NODULE METHOD OF INSTRUCTION: Individual instruction Written instruction - handouts Verbal instruction PATIENT / FAMILY RESPONSE: Information received as demonstrated by interest and questions FOLLOW-UP PLAN: Complete - No need for follow-up SUPPLEMENTAL MATERIAL: Your Surgical Guide REFERRAL (RECOMMENDATION): None Electronically Signed By: Kiarra Saini RN In Department: ENDOCRINE SURGERY Progress Notes (ENDO SURG MAIN): Antonette Cage Ma 12/21/2018 8:50 AM Signed Thank you for choosing the [facility] Department of Endocrinology, Diabetes and Metabolism. Being able to provide excellent health care has allowed us to be # 3 in the country according to [employer]. Did you know that you need to call 48 hours in advance of your scheduled visit, if you are unable to make your appointment? The Endocrinology and Metabolism [place] thanks you for your commitment, because patients not showing to their appointment results in a lost opportunity for patients to receive world class health care at the [facility]. To Cancel an appointment, please choose one of the following: - Call the Appointment Call Center at [phone] - From [facility], Go to Appointments ? Cancel Appts If cancelling, consider your need to reschedule to prevent further delays in your care. To Schedule an appointment, please choose one of the following: - Call the Appointment Call Center at [phone] - From [facility], Go to Appointments ? Request an Appt Praveen Urrutia MD, MD 12/21/2018 9:13 AM Sign at close encounter [facility] ENDOCRINE SURGERY SERVICE DATE: 12/21/2018 SERVICE TIME: PCP: Grayson Archuleta MD Subjective HPI: Mr. Hannah Albright is a 18 year old male with FUNCTIONAL STATUS: { :[id number]} PAST MEDICAL HISTORY Diagnosis Date - NEGATIVE MEDICAL HISTORY 2011 normal color vision PAST SURGICAL HISTORY Procedure Laterality Date - PAST SURGICAL HISTORY OF 08/1999 circumcision - PAST SURGICAL HISTORY OF tubes in ears - between 18 months and 1 years of age - PAST SURGICAL HISTORY OF 11/12/11 Excision of skin lesion Lt lower leg FAMILY HISTORY Problem Relation Age of Onset - other (negative family history) Other - No Known Problems Mother - No Known Problems Father - No Known Problems Sister - No Known Problems Brother - No Known Problems Maternal Grandfather - No Known Problems Brother Social History Tobacco Use - Smoking status: Never Smoker - Smokeless tobacco: Never Used Substance Use Topics - Alcohol use: Not on file - Drug use: Not on file MEDICATIONS Current Outpatient Medications: calcium phosphate dibas/vit D3 (VITAMIN D, WITH CALCIUM, ORAL) Take by mouth. Multivitamin capsule Take 1 capsule by mouth once daily. No current facility-administered medications for this visit. ALLERGIES No Known Allergies COMPLETE REVIEW OF SYSTEMS: ENDO: No history of thyroid disorder, diabetes, cold intolerance, heat intolerance, polydypsia , thyroid nodule on exam CARDIAC: No history of chest pain, palpitation, orthopnea, cyanosis, pedal edema RESPIRATORY: Negative for cough, wheezing or shortness of breath GI: no nausea, fullness, vomiting, diarrhea, constipation, GI bleeding or heartburn : no dysuria, frequency, hesitancy, hematuria, polyuria or nocturia HEMATOLOGY/ONCOLOGY: negative MUSCULOSKELETAL: No joint pain, stiffness, swelling, cramping or weakness NERVOUS SYSTEM: no numbness, paresthesias, weakness, cramping, burning or dizziness Objective PHYSICAL EXAM: Appearance: Well appearing, alert, in no acute distress, well-hydrated, well nourished. Eyes: PERRLA, conjunctiva and sclera normal Neck: Supple, no adenopathy; thyroid symmetric, normal size, Heart: RRR without murmur, gallop, or rubs. Lungs Lungs clear to auscultation. No wheezing, rhonchi, rales Extremities: No deformities Neuro: Awake, alert and oriented x 3, Diagnostic tests reviewed for today's visit: PENDING Impression/Recommendations PLAN: Total thyroidectomy SIGNATURE: Praveen Urrutia MD PATIENT NAME: Hannah Albright DATE: December 21, 2018 TIME: 9:09 AM PAGER/CONTACT #: Jacquie Felipe MD 12/21/2018 9:56 AM Sign at close encounter Completing preop eval today. He has elected to undergo Left thyroid lobectomy. Consent signed Jacquie Felipe MD [facility] Non-Snuff Drier Cytology Reporton Non-Snuff Drier Cytology Report . Pathology Reports Accession: Collected Date/Time: Received Date/Time: Pathologist: [id number] 08/03/2018 11:00 EDT 08/03/2018 11:47 EDT SAADIA DENT MD Non-Snuff Drier Cytology Report CLINICAL INFORMATION: LEFT LOBE THYROID MASS DIAGNOSIS: NUMEROUS FOLLICULAR CELLS PRESENT FAVOR NODULAR HYPERPLASIA. SPECIMEN: LEFT THYROID FNA GROSS DESCRIPTION: # of Blocks: 1 # of Monolayers: 1 # of Smears: 8 Volume (ml) 40 Color: FIXED RED FLUID Electronically Signed by Pathology report verified by [facility] Screened by: PATTI DW Electronically signed by SAADIA DENT Sign-Out Date: 08/04/2018 11:06 Performing Lab: [address] Normal [facility] ([place]) Comment on above: Performed By: #### N GCR #### [place] [address] APTTon 08-03-2018 aPTT Coag time (Bld) Unknown Normal [facility] ([place] Comment on above: Performed By: #### P LT, FIB, APTT, PRO #### [place] [address] aPTT Coag time (Bld) 31.7 s Normal 25.0-35.0 [facility] ([place] Comment on above: Result Comment: For Heparin anticoagulation therapy, the recommended therapeutic range is: 54-77 seconds (APTT Correlation with Anti-Xa therapeutic range of 0.3-0.7 units/ml). PLEASE REFERENCE THE PHARMACY PROTOCOL FOR DOSING. Performed By: #### P LT, FIB, APTT, PRO #### [place] [address] FIBon 08-03-2018 Fibrinogen 313 mg/dL Normal 250-550 [facility] ([place] Comment on above: Performed By: #### P LT, FIB, APTT, PRO #### [place] [address] PLTon 08-03-2018 Platelets #/vol (Bld) 296 10 3/mcL Normal 150-450 [facility] ([place] Comment on above: Performed By: #### P LT, FIB, APTT, PRO #### [place] [address] PROon 08-03-2018 INR Coag RelTime (PPP) 1.0 {INR} Normal [facility] ([place] Comment on above: Result Comment: The [employer] (CHEST, 1992, 102:312S-25S) recommended therapeutic range for oral anticoagulant therapy is: LOW RISK: Prophylaxis of venous thrombosis INR: 2.0-3.0 Treatment of pulmonary embolism 2.0-3.0 Prevention of systemic embolism 2.0-3.0 HIGH RISK: Mechanical prosthetic valves 2.5-3.5 Performed By: #### P LT, FIB, APTT, PRO #### [place] [address] Prothrombin time (PT) Coag time (PPP) 12.3 s Normal 9.0-14.6 [facility] ([place]) Comment on above: Result Comment: Effe ctive 10/25/07, Protime results may be affected by some antibiotics (i.e. Ciprofloxacin, Azithromycin, Bactrim) which may potentiate the action of oral anticoagulants, with further increases in Protime/INR. Performed By: #### P LT, FIB, APTT, PRO #### [place] [address] US BIOPSY THYROID FNAon 07-12 US BIOPSY THYROID FNA ORIGINAL PROCEDURE: 1. Fine needle aspiration of left thyroid nodule with ultrasound guidance CLINICAL STATEMENT: LEFT ANTERIOR NECK MASS COMPARISON: Ultrasound same day PROCEDURE: The procedure, risks, and alternatives, were discussed with the patient and all questions were answered. Written informed consent obtained from the patient. Accompanying paperwork was verified for accuracy. Directed history and physical exam performed prior to the procedure. Medication reconciliation performed by nursing personnel. Procedure was performed using a cap, sterile gloves, a large sterile sheet, hand hygiene and hospital approved cutaneous antisepsis. The patient was positioned supine on the table and prepped and draped in usual sterile fashion. A critical pause was performed with assisting personnel just prior to the procedure with the patient's identity confirmed using 2 identifiers, confirming site and side. Ultrasound images demonstrate stable mildly echogenic solid nodule in the inferior pole of the LEFT thyroid lobe with peripheral calcification. A trajectory was planned. The skin and subcutaneous tissues were anesthetized with lidocaine. Under ultrasound guidance, 25G needle was advanced into the nodule. A total of 4 FNA specimens were obtained. The specimen were submitted to pathology. Post biopsy images demonstrate no hemorrhage. COMPLICATIONS: None EBL: Minimal PATIENT CONDITION: Stable, unchanged. IMPRESSION: 1. Successful US-guided FNA of a thyroid nodule. Interpreted By: Cliff Berger MD Preliminary Report By: Cliff Berger MD Electronically Signed By: Cliff Berger MD Dictated Date: 08/03/2018 4:29:08 PM Prelim Date: 08/03/2018 4:29:08 PM Sign Date: 08/03/2018 4:29:35 PM Normal [facility] ([place] US THYROIDon 08-03-2018 US THYROID ORIGINAL US THYROID CLINICAL STATEMENT: left anterior neck mass. COMPARISON: None FINDINGS: Size right thyroid lobe: 3.9 x 2.1 x 1.1 cm Size left thyroid lobe: 5.3 x 1.7 x 1.9 cm Size isthmus: 3 mm Estimated total number of nodules greater than or equal to 1 cm: 1 Nodule 1: Size: 1.9 x 1.9 x 1.8 cm Location: LEFT thyroid lobe inferiorly Composition: solid or almost completely solid: 2 points Echogenicity: hyperechoic: 1 point Shape: wider than tall: 0 points Margins: smooth: 0 points Echogenic foci: peripheral calcifications: 2 points ACR Total Points: 5; ACR TI-RADS risk category: TR4 - moderately suspicious nodule. IMPRESSION: 1. Nodule 1: ACR TI-RADS 2017 Category 5. Recommend: Ultrasound-guided fine needle aspiration, which was performed and reported separately. ACR TI-RADS 2017 Recommendations: TR1: No FNA or follow up TR2: No FNA or follow up TR3: FNA if >/= 2.5 cm, follow up if 1.5 - 2.4 cm in 1, 3, and 5 years TR4: FNA if >/= 1.5 cm, follow up if 1.0 - 1.4 cm in 1, 2, 3, and 5 years TR5: FNA if >/= 1.0 cm, follow up if 0.5 - 0.9 cm every year for 5 years *ACR TI-RADS recommends that no more than two nodules with the highest ACR TI-RADS total point should be biopsied and no more than four nodules should be followed. I have personally reviewed the images of this examination and agree with the resident's findings and interpretation. Interpreted By: Cliff Berger MD Preliminary Report By: Grayson Ortiz MD Electronically Signed By: Cliff Berger MD Dictated Date: 08/03/2018 9:14:26 AM Prelim Date: 08/03/2018 9:19:40 AM Sign Date: 08/03/2018 3:54:48 PM Normal [facility] ([place]) Vital Signs Date Time Vital Sign Value Performing Clinician Ricco polk 11-01-2023 14:41-0400 Body height 185.5 cm Jacquie Felipe MD Work Phone: [facility] 11-01-2023 14:41-0400 Body mass index (BMI) [Ratio] 21.95 kg/m2 Jacquie Felipe MD Work Phone: [facility] 11-01-2023 14:41-0400 Body weight 75.52 kg Jacquie Felipe MD Work Phone: [facility] 11-01-2023 14:41-0400 Diastolic blood pressure 85 mm[Hg] Jacquie Felipe MD Work Phone: [facility] 11-01-2023 14:41-0400 Heart rate 80 /min Jacquie Felipe MD Work Phone: [facility] 11-01-2023 14:41-0400 Systolic blood pressure 141 mm[Hg] Jacquie Felipe MD Work Phone: [facility] Encounters Encounter Date Encounter Type Care Provider Facility Start: 08-18-2024 End: 08-18-2024 Telephone encounter Jacquie Felipe MD Work Phone: [facility] Comment on above: Refill Request (Pt i s requesting a refill on synthroid. He hasn't see his pcp in over a year and they can't refill it. He is totally out of it for about one week./) Start: 11-04-2023 Orders Only Jacquie castelan MD Work Phone: [facility] Comment on above: Thyroid cancer (HCC) (Primary Dx) Start: 11-01-2023 End: 11-01-2023 Patient encounter procedure Jacquie Felipe MD Work Phone: [facility] Comment on above: Thyroid cancer (HCC) (Primary Dx); Papillary thyroid carcinoma (HCC) Start: 11-01-2023 End: 11-01-2023 ambulatory [facility] Facility:[facility] Start: 10-30-2023 End: 10-30-2023 ambulatory [facility] Facility:[facility] Start: 10-26-2023 Orders Only Jacquie castelan MD Work Phone: [facility] Surgery Comment on above: Papillary thyroid ca rcinoma (HCC) (Primary Dx) Start: 08-04-2022 ambulatory Ced Hussain Facility:[facility] Start: 08-04-2022 End: 08-04-[address] [facility] Work Phone: Start: 08-04-2022 End: 08-04-2022 Patient encounter procedure [facility], [facility] Start: 07-30-2022 ambulatory Jacquie castelan MD Work Phone: [facility] Comment on above: Results Start: 07-24-2022 Encounter for genera l adult medical examination without abnormal findings SHARON TIJERINA [facility] Start: 07-21-2022 Telephone encounter Jacquie lindquist MD Work Phone: [facility] Comment on above: Results Start: 07-20-2022 End: 07-20-2022 Orders Only Jacquie Felipe MD Work Phone: [facility] Surgery Comment on above: Papillary thyroid ca rcinoma (HCC) (Primary Dx) Start: 07-20-2022 End: 07-20-2022 Patient encounter procedure [facility]-Laboratory Start: 03-26-2022 Refill Grayson Archuleta MD Work Phone: End[facility] Surgery Comment on above: Refill Request Start: 08-03-2018 End: 08-04-2018 [facility] Procedures Date Procedure Procedure Detail Performing Clinician Start: 11-01-2023 Us soft tissue head & neck real time imge docm Jacquie Felipe MD Work Phone: Start: 08-04-2022 Ultrasound of scrotu m with Doppler and color flow imaging Plan of Treatment Date Care Activity Detail Author Start: 07-17-2032 Urine microalbumin profile DTaP,Tdap,Td Vaccine (9 - Td or Tdap) [facility] Start: 12-11-2024 Influenza vaccination Influenz a Vaccine (Season Ended) [facility] Start: 10-30-2024 End: 10-30-2024 Patient encounter procedure 10/30/2024 3:40 PM EDT Office Visit [facility] Surgery [address] [place] [address] Jacquie Felipe MD [address] [facility] [address] [place], [place] [id number] Annual Thyroid follow up [facility] Comment on above: Annual Thyroid follo w up Start: 09-11-2024 End: 12-11-2024 Thyrotropin [Units/volume] in Serum or Plasma THYROID STIMULATING HORMONE Lab Routine Thyroid cancer (HCC) Expected: 09/11/2024, Expires: 12/11/2024 [facility] Work Phone: Comment on above: Expected: 09/11/2024 , Expires: 12/11/2024 Start: 12-12-2023 Covid-19 Vaccine ( season) Covid-19 Vaccine ( season) [facility] Start: 12-12-2023 Influenza vaccination Influenza Vacc ine (#1) [facility] Start: 11-01-2023 End: 11-01-2023 Patient encounter procedure 11/01/2023 2:45 PM EDT Office Visit Endocrine Surgery [address] [place] [address] Jacquie Felipe MD [address] [facility] [address] [place] [address] My chart request - follow up Endocrine Surgery Comment on above: My chart request - f ollow up Start: 10-27-2023 End: 01-26-2024 Thyrotropin [Units/volume] in Serum or Plasma THYROID STIMULATING HORMONE Lab Routine Papillary thyroid carcinoma (HCC) Expected: 10/27/2023 (Approximate), Expires: 01/26/2024 [facility] Work Phone: Comment on above: Expected: 10/27/2023 (Approximate), Expires: 01/26/2024 Start: 04-12-2023 Behavioral Health Screening Behavioral Health Screening [facility] Start: 12-11-2022 Covid-19 Vaccine ( season) Covid-19 Vaccine ( season) [facility] Start: 12-11-2022 Influenza vaccination INFLUENZ A (Season Ended) [facility] Start: 04-12-2022 DEPRESSION ASSESSMENT DEPRESSION ASS ESSMENT [facility] Start: 12-11-2021 Influenza vaccination INFLUENZA (#1) [facility] Start: 06-07-2021 COVID-19 VACCINE (5 - Booster) COVID-19 VACCINE (5 - Booster) [facility] Start: 11-05-2020 COVID-19 VACCINE (3 - Booster for Pfizer series) COVID-19 VACCINE (3 - Booster for Pfizer series) [facility] Start: 09-11-2020 Urine microalbumin profile DTAP,TDAP,TD (7 - Td or Tdap) [facility] Start: 08-13-2017 Anxiety Screening Anxiety Screening [facility] Start: 08-13-2017 Depression Screening Depression Scre ening [facility] Start: 08-13-2017 HEPATITIS C SCREENING HEPATITIS C [facility] Start: 08-13-2017 Hepatitis C screening Hepatitis C [facility] Start: 08-13-2017 HIV SCREENING HIV SCREENING [facility] Start: 08-13-2017 HIV screening HIV Screening [facility] Start: 2015 Meningococcal B Vacc ine: Consider Based On Risk (1 of 2 - Patient Seeks Protection) Meningococcal B Vaccine: Consider Based On Risk (1 of 2 - Patient Seeks Protection) [facility] Start: 08-13-2014 HPV Vaccine (1 - Mal e 3-dose series) HPV Vaccine (1 - Male 3-dose series) [facility] Start: 08-13-2013 PEDS TO ADULT TRANSI TION ANNUAL ASSESSMENT PEDS TO ADULT TRANSITION ANNUAL ASSESSMENT [facility] Start: 2011 PEDS TO ADULT TRANSI TION INITIAL DISCUSSION PEDS TO ADULT TRANSITION INITIAL DISCUSSION [facility] Start: 08-13-2010 HPV VACCINE (1 - Mal e 2-dose series) HPV VACCINE (1 - Male 2-dose series) [facility] Start: 08-13-2009 MENINGOCOCCAL B: Consider based on risk (1 of 2 - Risk Bexsero 2-dose series) MENINGOCOCCAL B: Consider based on risk (1 of 2 - Risk Bexsero 2-dose series) [facility] Start: 08-13-2008 HPV Vaccine (1 - Ris k male 3-dose series) HPV Vaccine (1 - Risk male 3-dose series) [facility] US THYROID/PARATHYRO ID (POC) ENDO USE ONLY US THYROID/PARATHYROID (POC) ENDO USE ONLY Imaging Diagnostic Routine Papillary thyroid carcinoma (HCC) Ordered: 07/20/2022 [facility] Work Phone: Comment on above: Ordered: 07/20/2022 [facility] Immunizations Immunization Date Immunization Notes Care Provider Chaparro carrizales 01-07-2017 meningococcal polysaccharide (groups A, C, Y and W-135) diphtheria toxoid conjugate vaccine (MCV4P) Grayson Archuleta MD Work Phone: [facility] 10-21-2011 varicella virus vaccine Grayson Archuleta MD Work Phone: [facility] 09-11-2010 hepatitis A vaccine, unspecified formulation Grayson Archuleta MD Work Phone: [facility] Work Phone: 09-11-2010 Meningococcal, MCV4, unspecified conjugate formulation(groups A, C, Y and W-135) Grayson Archuleta MD Work Phone: [facility] Work Phone: 09-11-2010 tetanus toxoid, redu ar diphtheria toxoid, and acellular pertussis vaccine, adsorbed Grayson Archuleta MD Work Phone: [facility] Work Phone: 06-25-2008 hepatitis A vaccine, unspecified formulation Grayson Archuleta MD Work Phone: [facility] 11-24-2004 diphtheria, tetanus toxoids and acellular pertussis vaccine Grayson Archuleta MD Work Phone: [facility] Work Phone: 11-24-2004 haemophilus influenz ae type b vaccine, HbOC conjugate Grayson Archuleta MD Work Phone: [facility] Work Phone: 11-24-2004 measles, mumps and rubella virus vaccine Grayson Archuleta MD Work Phone: [facility] Work Phone: 11-24-2004 poliovirus vaccine, inactivated Grayson Archuleta MD Work Phone: [facility] Work Phone: 03-15-2002 influenza virus vacc ine, unspecified formulation Grayson Archuleta MD Work Phone: [facility] Work Phone: 02-08-2002 influenza virus vacc ine, unspecified formulation Grayson Archuleta MD Work Phone: [facility] Work Phone: 12-24-2000 diphtheria, tetanus toxoids and acellular pertussis vaccine Grayson Archuleta MD Work Phone: [facility] Work Phone: 09-16-2000 measles, mumps and rubella virus vaccine Grayson Archuleta MD Work Phone: [facility] Work Phone: 09-16-2000 pneumococcal conjuga te vaccine, 7 valent Grayson Archuleta MD Work Phone: [facility] Work Phone: 09-16-2000 varicella virus vaccine Grayson Archuleta MD Work Phone: [facility] Work Phone: 05-27-2000 haemophilus influenz ae type b vaccine, HbOC conjugate Grayson Archuleta MD Work Phone: [facility] Work Phone: 05-27-2000 hepatitis B vaccine, pediatric or pediatric/adolescent dosage Grayson Archuleta MD Work Phone: [facility] Work Phone: 05-27-2000 poliovirus vaccine, inactivated Grayson Archuleta MD Work Phone: [facility] Work Phone: 02-24-2000 diphtheria, tetanus toxoids and acellular pertussis vaccine Grayson Archuleta MD Work Phone: [facility] Work Phone: 02-24-2000 pneumococcal conjuga te vaccine, 7 valent Grayson Archuleta MD Work Phone: [facility] Work Phone: 1999 diphtheria, tetanus toxoids and acellular pertussis vaccine Grayson Archuleta MD Work Phone: [facility] Work Phone: 1999 haemophilus influenz ae type b vaccine, HbOC conjugate Grayson Archuleta MD Work Phone: [facility] Work Phone: 1999 pneumococcal conjuga te vaccine, 7 valent Grayson Archuleta MD Work Phone: [facility] Work Phone: 1999 poliovirus vaccine, inactivated Grayson Archuleta MD Work Phone: [facility] Work Phone: 1999 diphtheria, tetanus toxoids and acellular pertussis vaccine Grayson Archuleta MD Work Phone: [facility] Work Phone: 1999 haemophilus influenz ae type b vaccine, HbOC conjugate Grayson Archuleta MD Work Phone: [facility] Work Phone: 1999 pneumococcal conjuga te vaccine, 7 valent Grayson Archuleta MD Work Phone: [facility] Work Phone: 1999 poliovirus vaccine, inactivated Grayson Archuleta MD Work Phone: [facility] Work Phone: 1999 hepatitis B vaccine, pediatric or pediatric/adolescent dosage Grayson Archuleta MD Work Phone: [facility] Work Phone: 1999 hepatitis B vaccine, pediatric or pediatric/adolescent dosage Grayson Archuleta MD Work Phone: [facility] Work Phone: Payers Date Payer Category Payer Blue [facility] BLUE CARD PPO OOS [id number] 2023 Unknown [id number] 2022 Self-pay [id number] 2022 Unknown [id number] 2022 Private Health Insurance [facility] [id number] 2022-Present [phone] [address] [place] [id number] PPO [id number] 2019 Unknown [id number] 2018 Unknown [id number] 2011 Unknown [place] [id number] 1999 Unknown [id number] Unknown [id number] Unknown [id number] Social History Date Type Detail Facility Start: 07-12-2018 End: 07-20-2022 Tobacco smoking status NHIS Never smoked tobacco [facility] Work Phone: Start: 07-12-2018 End: 07-20-2022 Tobacco use and exposure Smokeless tobacco non-user [facility] Work Phone: Start: 10-28-2020 End: 11-01-2023 Alcohol intake Not Asked [facility] Start: 1999 Sex Assigned At Not on file C [facility] Start: 07-12-2018 Tobacco smoking stat us AKIS Unknown if ever smoked [facility] Start: 1999 Sex Assigned At Male [facility] Start: 07-20-2022 End: 11-01-2023 History of Social function [facility] Start: 07-20-2022 End: 11-01-2023 Tobacco use panel [facility] PHQ2 Score 0 [facility] Functional Status Date Assessment Result Facility 12-23-2018 Are you deaf, or do you have serious difficulty hearing No 12/23/2018 8:04 AM EDT Shireen Mclain RN No [facility] 12-23-2018 Are you blind, or do you have serious difficulty seeing, even when wearing glasses No 12/23/2018 8:04 AM EDT Shireen Mclain RN No [facility] 12-23-2018 Do you have serious difficulty walking or climbing stairs No 12/23/2018 8:04 AM EDT Shireen Mclain RN No [facility] 12-23-2018 Do you have difficul ty dressing or bathing No 12/23/2018 8:04 AM JACQUIT Shireen Mclain RN No [facility] 12-23-2018 Because of a physica l, mental, or emotional condition, do you have difficulty doing errands alone such as visiting a physician's office or shopping No 12/23/2018 8:04 AM EDT Shireen Mclain RN No [facility] Mental Status Date Assessment Result Facility 12-23-2018 Because of a physica l, mental, or emotional condition, do you have serious difficulty concentrating, remembering, or making decisions No 12/23/2018 8:04 AM EDT Shireen Mclain RN No [facility] Clinical Notes 11-14-2018 to 08-18-2024 Telephone Encounter - Delmy Hollingsworth - 08/18/2024 4:33 PM EDTTelephone Encounter - Delmy Hollingsworth - 08/18/2024 4:33 PM EDTAddendum Note - Katrina Ward MD - 08/18/2024 3:39 PM EDT Note Date & Type Note Facility 08-18-2024 Telephone encount er Note Called pt and advised of one month refill. Advised that his PCP will need to monitor his labwork and refills moving forward. Pt has appt this month with PCP and voices understanding. Delmy Hollingsworth RN [facility] 08-18-2024 Miscellaneous Notes Formattin g of this note might be different from the original. Called pt and advised of one month refill. Advised that his PCP will need to monitor his labwork and refills moving forward. Pt has appt this month with PCP and voices understanding. Delmy Hollingsworth RN Addended by: KATRINA WARD on: 08/18/2024 03:39 PM Modules accepted: Orders Pt is requesting a refill on synthroid. He hasn't see his pcp in over a year and they can't refill it. He is totally out of it for about one week. documented in this encounter [facility] 08-18-2024 Note Addended by: SARAH WARD on: 08/18/2024 03:39 PM Modules accepted: Orders [facility] 08-18-2024 Telephone encount er Note Pt is requesting a refill on synthroid. He hasn't see his pcp in over a year and they can't refill it. He is totally out of it for about one week. [facility] Work Phone: 11-03-2023 Note HNO ID: [id number] Author: JACQUIE FELIPE MD Service: ? Author Type: Resident Type: Progress Notes Filed: 11/03/2023 08:45 Note Text: I saw your patient Hannah Albright in longitudinal follow-up for papillary thyroid cancer. He is now 5 years after undergoing a left thyroid lobectomy for a 1.5 cm contained papillary cancer. Given this finding, he did not require radioiodine ablation. He is on 75 mcg thyroid hormone tablets taking a total of 8 on a weekly basis. He has felt well on this dose with no hyperthyroid type symptoms. A TSH done on 10/30/2023 measured 2.000. I feel that this level is appropriate for him. In the office today he is well-appearing. His transverse cervical incision remains well-healed. Palpation of the neck reveals no palpable tissue within the left thyroid bed. The right lobe is barely palpable. I can appreciate no nodularity nor any palpable neck nodes. Ultrasound examination was performed in the office. This confirms surgical absence of the left thyroid lobe and isthmus. The right lobe is of a normal size and normal background echotexture. There are no thyroid nodules. I can appreciate no worrisome lymph nodes in either central neck compartment nor in either jugular chain. I am pleased that he continues to do well without evidence of recurrent disease. I plan to see him back in the office in 1 years time with a TSH prior to that visit. I appreciate being involved in the care of your patient and please feel free to contact me should you have additional questions. Sincerely, Jacquie Felipe MD [facility] 11-03-2023 History of Presen t illness Narrative I saw your patient Hannah Albright in longitudinal follow-up for papillary thyroid cancer. He is now 5 years after undergoing a left thyroid lobectomy for a 1.5 cm contained papillary cancer. Given this finding, he did not require radioiodine ablation. He is on 75 mcg thyroid hormone tablets taking a total of 8 on a weekly basis. He has felt well on this dose with no hyperthyroid type symptoms. A TSH done on 10/30/2023 measured 2.000. I feel that this level is appropriate for him. In the office today he is well-appearing. His transverse cervical incision remains well-healed. Palpation of the neck reveals no palpable tissue within the left thyroid bed. The right lobe is barely palpable. I can appreciate no nodularity nor any palpable neck nodes. Ultrasound examination was performed in the office. This confirms surgical absence of the left thyroid lobe and isthmus. The right lobe is of a normal size and normal background echotexture. There are no thyroid nodules. I can appreciate no worrisome lymph nodes in either central neck compartment nor in either jugular chain. I am pleased that he continues to do well without evidence of recurrent disease. I plan to see him back in the office in 1 years time with a TSH prior to that visit. I appreciate being involved in the care of your patient and please feel free to contact me should you have additional questions. Sincerely, Jacquie Felipe MD documented in this encounter [facility] 11-01-2023 Instructions Missy Brewster OCCA - 11/01/2023 2:40 PM EDT Thank you for choosing the [facility] Department of Endocrinology, Diabetes and Metabolism. Did you know that you need to call 48 hours in advance of your scheduled visit, if you are unable to make your appointment? The Endocrinology and Metabolism [place] thanks you for your commitment, because patients not showing to their appointment results in a lost opportunity for patients to receive [facility] health care at the [facility]. To Cancel an appointment, please choose one of the following: - Call the Appointment Call Center at [phone] - From [employer], Go to Appointments - Cancel Appts If cancelling, consider your need to reschedule to prevent further delays in your care. To Schedule an appointment, please choose one of the following: - Call the Appointment Call Center at [phone] - From [employer], Go to Appointments - Request an Appt documented in this encounter [facility] 07-30-2022 Nurse Note Pt. was seen on 07/20/2022 for on going follow up for papillary thyroid cancer. Pt. had o/s labs drawn @ [facility] on 07/20/2022 TSH 2.67 (0.358-3.74) TG antibody <1.0 (0.0-0.9) Thyroglobulin was not drawn. Huong Rosario RN error Pt. was seen on 07/20/2022 for on going follow up for papillary thyroid cancer documented in this encounter [facility] 07-21-2022 Miscellaneous Notes Formattin g of this note might be different from the original. 07/20 Lab Results Indexed documented in this encounter [facility] 04-13-2022 Miscellaneous Notes Formattin g of this note might be different from the original. MyChart message sent Dolores Garay RN Left message to call the office Dolores toppiece chopper Patient's request for medication is as follows Requested Prescriptions Signed Prescriptions Disp Refills levothyroxine (SYNTHROID) 75 mcg tablet 96 tablet 0 Sig: Take 1 tablet by mouth once daily. Except Wednesday take 2 tablets. (total 8 tabletsweekly) Authorizing Provider: GRAYSON ARCHULETA Please remind the patient he needs to schedule his routine follow-up appointment with Dr. Felipe. He was due for a yearly follow-up in October 2021. This needs to be scheduled. Additionally he will need laboratories completed. Grayson Archuleta MD Pt is working on getting an adult provider since he just graduated from college, but will run out before established. Last [facility]: greater than one year ago Verify RX Benefits Completed, No pharmacy benefits on file Last medication refill date: 03/22/2021 x90 days + 3 refills Requesting 90 day supply Retail pharmacy updated: Completed Patient aware RX will be sent to pharmacy. No need to notify patient. Immunizations due: MENINGOCOCCAL B: Consider based on risk(1 of 2 - Risk Bexsero 2-dose series) Never done HPV VACCINE(1 - Male 2-dose series) Never done HEPATITIS C SCREENING Never done HIV SCREENING Never done DTAP,TDAP,TD(7 - Td or Tdap) due on 09/11/2020 COVID-19 VACCINE(3 - Booster for Pfizer series) due on 11/05/2020 DEPRESSION ASSESSMENT Never done INFLUENZA(1) due on 12/11/2021 Vickie Regan LPN documented in this encounter [facility] 11-14-2018 History of Past i llness Narrative Problem Noted Date Resolved Date Solitary thyroid nodule 11/14/2018 07/03/19 20 Neoplasm of uncertain behavior of skin 2 10/24/2013 documented as of this encounter (statuses as of 04/16/2022) [facility]08-[facility]-2019 History of Past illness Narrative* Problem Noted Date Resolved Date Solitary thyroid nodule 11/14/2018 07/03/19 20 Neoplasm of uncertain behavior of skin 2 10/24/2013 documented as of this encounter (statuses as of 07/20/2022) [facility] History of Past illness Narrative* Problem Noted Date Resolved Date Solitary thyroid nodule 11/14/2018 07/03/19 20 Neoplasm of uncertain behavior of skin 2 10/24/2013 documented as of this encounter (statuses as of 07/21/2022) [facility] History of Past illness Narrative* Problem Noted Date Resolved Date Solitary thyroid nodule 11/14/2018 07/03/19 20 Neoplasm of uncertain behavior of skin 2 10/24/2013 documented as of this encounter (statuses as of 07/21/2022) [facility] History of Past illness Narrative* Problem Noted Date Resolved Date Solitary thyroid nodule 11/14/2018 07/03/19 20 Neoplasm of uncertain behavior of skin 2 10/24/2013 documented as of this encounter (statuses as of 07/31/2022) [facility] Diagnosis Papillary thyroid carcinoma (HCC)- Primary Malignant neoplasm of thyroid gland [facility] Papillary thyroid carcinoma (HCC)- Primary Malignant neoplasm of thyroid gland [facility] noteNo assessment information availableWM[facility] Work Phone: Evaluation note* Diagnosis Papillary thyroid carcinoma (HCC)- Primary Malignant neoplasm of thyroid gland [facility] [place] [facility] Diagnosis Thyroid cancer (HCC)- Primary Malignant neoplasm of thyroid gland Papillary thyroid carcinoma (HCC) Malignant neoplasm of thyroid gland [facility] [place] [facility]* Diagnosis Thyroid cancer (HCC)- Primary Malignant neoplasm of thyroid gland documented in this encounter [facility] Summary Purpose Family History No Family History Records FoundNo Family History Records FoundNo Family History Records FoundNo Family History Records Found Advance Directives No Advanced Directives Records FoundNo Advanced Directives Records FoundNo Advanced Directives Records FoundNo Advanced Directives Records Found Procedure Findings Note HNO ID: [id number] Author: Franny Pisano (Fel) Service: Endocrine Surgery Author Type: Fellow Type: Brief Op Note Filed: 12/22/2018 2:50 PM Note Text: BRIEF OPERATIVE / PROCEDURE NOTE LOG ID: [id number] SURGERY/PROCEDURE DATE: 12/22/2018 INCISION/PROCEDURE START TIME: 1:53 PM INCISION CLOSE/PROCEDURE END TIME: SURGEON(S)/PROCEDURALIST(S) AND CUT OFF MACHINE OPERATOR(S): Surgeon(s) and Role: * Jacquie Felipe - Primary * Du Umanzor (Jacob Gonzalez MD - Resident - Assisting * Sal Pisano (Fel) - Fellow No Additional Staff SURGERY/PROCEDURE(S): Left thyroid lobectomy ANESTHESIA: General FINDINGS: Left thyroid nodule ESTIMATED BLOOD LOSS: 5 mls SPECIMENS: Left thyroid lobe with isthmus COMPLICATIONS: None PRE-OP/PRE-PROCEDURE DIAGNOSIS: Left thyroid nodule; suspicious for malignancy POST-OP/POST-PROCEDURE DIAGNOSIS: Left thyroid nodule [E04.1] Left thyroid nodule; suspicious for malignancy SIGNATURE: Sal pisano MD PATIENT NAME: Hannah Albright DATE: December 22, 2018 TIME: 2:49 PM PAGER/CON (more content not included)... Chief Complaint and Reason for Visit Chief Complaint 2 ORDERING DOCTORS Chief Complaint 2 ORDERING DOCTORS SCROTAL MASS Additional Source Comments (unrecognized sect ion and content) No Status Records FoundNo Status Records FoundNo Status Records FoundNo Status Records Found INFORMATION SOURCE (unrecogn ized section and content) DATE CREATED AUTHOR 08/05/2018 [facility] ([place]) DATE CREATED AUTHOR AUTHOR'S ORGANIZ ATION 12/28/2018 [facility] DATE CREATED AUTHOR AUTHOR'S ORGANIZ ATION [facility] [facility] DATE CREATED AUTHOR AUTHOR'S ORGANIZ ATION 08/20/2024 [facility] Source Comments (unrecognize d section and content) In the event this informatio n is protected by the Federal Confidentiality of Alcohol and Drug Abuse Patient Records regulations: The Federal rules restrict any use of the information to criminally investigate or prosecute any alcohol or drug abuse patient.[facility] the event this information is protected by the Federal Confidentiality of Alcohol and Drug Abuse Patient Records regulations: The Federal rules restrict any use of the information to criminally investigate or prosecute any alcohol or drug abuse patient.[facility] Hospital[facility] the event this information is protected by the Federal Confidentiality of Alcohol and Drug Abuse Patient Records regulations: The Federal rules restrict any use of the information to criminally investigate or prosecute any alcohol or drug abuse patient.[facility] Hospital[facility] the event this information is protected by the Federal Confidentiality of Alcohol and Drug Abuse Patient Records regulations: The Federal rules restrict any use of the information to criminally investigate or prosecute any alcohol or drug abuse patient.[facility] Hospital[facility] the event this information is protected by the Federal Confidentiality of Alcohol and Drug Abuse Patient Records regulations: The Federal rules restrict any use of the information to criminally investigate or prosecute any alcohol or drug abuse patient.[facility] Hospital[facility] the event this information is protected by the Federal Confidentiality of Alcohol and Drug Abuse Patient Records regulations: The Federal rules restrict any use of the information to criminally investigate or prosecute any alcohol or drug abuse patient.[facility] Hospital[facility] the event this information is protected by the Federal Confidentiality of Alcohol and Drug Abuse Patient Records regulations: The Federal rules restrict any use of the information to criminally investigate or prosecute any alcohol or drug abuse patient.[facility] Hospital[facility] the event this information is protected by the Federal Confidentiality of Alcohol and Drug Abuse Patient Records regulations: The Federal rules restrict any use of the information to criminally investigate or prosecute any alcohol or drug abuse patient.[facility] Hospital[facility] the event this information is protected by the Federal Confidentiality of Alcohol and Drug Abuse Patient Records regulations: The Federal rules restrict any use of the information to criminally investigate or prosecute any alcohol or drug abuse patient.[facility] Reason for Visit (unrecogniz ed section and content) Reason Comments Refill Request Reason Comments Results Reason Comments Follow Up Reason Comments Refill Request Pt is requesting a r efill on synthroid. He hasn't see his pcp in over a year and they can't refill it. He is totally out of it for about one week. Care Teams (unrecognized sec tion and content) Warehouse Administrative Assistant Relationship Specialty Start Date End Date Grayson Archuleta MD [address] [place] [address] PCP - General Pediatrics 01/04/17 Warehouse Administrative Assistant Relationship Specialty Start Date End Date Grayson Archuleta MD [address], [place] [id number] PCP - General Pediatrics 01/04/17 Warehouse Administrative Assistant Relationship Specialty Start Date End Date Grayson Archuleta MD [address] [place], [place] [id number] PCP - General Pediatrics 01/04/17 Warehouse Administrative Assistant Relationship Specialty Start Date End Date Grayson Archuleta MD [address] [place], [place] [phone] PCP - General Pediatrics 01/04/17 Team Status: Active Member Role Status Dates Dr. Grayson Archuleta MD Family Provider Active Dr. Ced Dunlap MD Primary Care Provider Active Team Status: Inactive Member Role Status Dates RAND DHILLON Attending Provider, Referring Provid er Active Dr. Ced Dunlap MD Primary Care Provider Active Team Status: Inactive Member Role Status Dates Dr. Ced Dunlap MD Primary Care Provi rena, Attending Provider, Referring Provider Active Warehouse Administrative Assistant Relationship Specialty Start Date End Date Grayson Archuleta MD [address] [place] [address] PCP - General Pediatrics 01/04/17 Warehouse Administrative Assistant Relationship Specialty Start Date End Date Grayson Archuleta MD [address] [place] [id number] PCP - General Pediatrics 01/04/17 11/02/23 Goals (unrecognized section and content) Goals may be documented in a n alternate sectionGoals may be documented in an alternate section FOR RECORDS PERTAINING TO PATIENTS WHO ARE OR HAVE BEEN ENROLLED IN A CHEMICAL DEPENDENCY/SUBSTANCEABUSE PROGRAM, SOME INFORMATION MAY BE OMITTED. This clinical summary was aggregated from multiple sources. Caution should be exercised in using it in the provision of clinical care. This summary normalizes information from multiple sources, and as a consequence, information in this document may materially change the coding, format and clinical context of patient data. In addition, data may be omitted in some cases. CLINICAL DECISIONS SHOULD BE BASED ON THE PRIMARY CLINICAL RECORDS. [facility] [employer] provides no warranty or guarantee of the accuracy or completeness of information in this document.
== END | disposition home or self-care (01) ==
PROVIDERS: PCP Family Medicine; Referring Provider Family Medicine; Visit Provider Family Medicine
DX: Z00.00 Encounter for general adult medical examination without abnormal findings (principal); E03.9 Hypothyroidism, unspecified; Z98.890 Other specified postprocedural states
CPT/HCPCS: 36415; 80048; 80061; 83970; 84439; 84443; 84481

== ENCOUNTER → 2024-10-26 | Outpatient (CLI) | payer BC, SELFPAY ==
--- OUTSIDE RECORDS SUMMARY | 2024-10-26 20:47 | XMS RPT_ITS | CCD ---
Author Organization [facility] Care Team Providers Care Investor Relations Specialist Name Role Phone JONO HUERTA Attending UnavailGRAYSON Gomez Primary Care Unavailable Albert MATA, Grayson Markham Primary Care Provider Grayson Archuleta MD Primary Care Provider Albert MATA, Grayson Markham Primary Care Provider Unavailable Primary Care Provider UnavailJACQUIE Miller Attending Unavailable GRAYSON ARCHULETA Primary Care Unavailable JACQUIE FELIPE Referring Unavailable GRAYSON ARCHULETA Primary Care Unavailable Hussain MATA, Dr. Coughlin Primary Care Provider [phone] Dr. Ced Nixon MD Attending Provider [phone] Ced Nixon MD Referring Provider [phone] Ced Nixon Referring Unavailable Ced Nixon Attending Unavailable Ced Nixon Primary Care Unavailable Medications Current Medications Medication Drug Class(es) Dates Sig (Normalized) Sig (Original) calcium phosphate dibas/vit D3 (VITAMIN D, WITH CALCIUM, ORAL) (10 sources) calcium phosphat e dibas/vit D3 (VITAMIN D, WITH CALCIUM, ORAL) Take by mouth. Active calcium phosphat e dibas/vit D3 (VITAMIN D, WITH CALCIUM, ORAL) Take by mouth. 0 Active Comment on above: Take by mouth. cholecalciferol, vitamin D3, (VITAMIN D3 ORAL) (7 sources) cholecalciferol, vitamin D3, (VITAMIN D3 ORAL) Take by mouth. Active cholecalciferol, vitamin D3, (VITAMIN D3 ORAL) Take by mouth. 0 Active Comment on above: Take by mouth. levothyroxine sodium 0.075 mg oral tablet (12 sources) l-Thyroxine Start: 07-03-2022 End: 08-18-2024 levothyroxine [...] tablets. (total 8 tablets weekly) Multivitamin capsule (10 sources) take 1 capsule by mouth once daily Multivitamin capsule Take 1 capsule by mouth once daily. Active take 1 capsule by mouth once ghulam ly Multivitamin capsule Take 1 capsule by mouth once daily. 0 Active Comment on above: Take 1 capsule by mo uth once daily. Problems Active Problems Problem Classification Problem Date Documented Da te Episodic/Chronic Cancer of thyroid (19 sources) Papillary thyroid carcinoma; Translations: [Malignant neoplasm of thyroid gland] Onset: 07-03-2019 07-03-2019 Chronic Past or Other Problems Problem Classification Problem Date Documented Da te Episodic/Chronic Neoplasms of unspecified nature or uncertain behavior (5 sources) Neoplasm of uncertain behavior of skin; Translations: [Neoplasm of uncertain behavior of skin] Onset: 10-29-2011 Resolved: 10-24-2013 10-24-2013 Episodic Other upper respiratory disease (10 sources) Epistaxis; Translations: [Epistaxis] Onset: 10-25-2014 10-25-2014 Episodic Thyroid disorders (5 sources) Uninodular goiter; Translations: [Nontoxic single thyroid nodule] Onset: 11-14-2018 Resolved: 07-03-2019 07-03-2019 Chronic Results Test Name Value Interpretation Reference Range Facility Anion gap in Serum or Plasma Ordered By: Ced Nixon on 10-02-2024 Anion gap [Moles/Vol] 10 mmol/L 08-24 [facility] BUN/creatinine ratioOrdered By: Ced Nixon on 10-02-2024 Urea nitrogen/Creatinine [Mass ratio] 12.8 mg/mg 01-29 [facility] Basic Metabolic Profile (BMP )on 10-02-2024 BUN/CRE 12.8 RATIO Normal 01-29 [facility] Comment on above: Performed By: #### L 501.25933, L500.4100, L506.0400, L501.9520, L509.1000, L500.2500 #### [facility] [address] [place], [address] Calcium [Mass/Vol] 9.3 mg/dL Normal 7.6-11.0 [facility] Comment on above: Performed By: #### L 501.97044, L500.4100, L506.0400, L501.9520, L509.1000, L500.2500 #### [facility] [address] [place], [address] Chloride [Moles/Vol] 105 mmol/L Normal 98-108 [facility] Comment on above: Performed By: #### L 501.60944, L500.4100, L506.0400, L501.9520, L509.1000, L500.2500 #### [facility] [address] [place], [address] CO2 [Moles/Vol] 27.2 mmol/L Normal 21.0-32.0 [facility] Comment on above: Performed By: #### L 501.05154, L500.4100, L506.0400, L501.9520, L509.1000, L500.2500 #### [facility] [address] [place], [address] Creatinine [Mass/Vol] 1.13 mg/dL Normal 0.70-1.20 [facility] Comment on above: Performed By: #### L 501.52469, L500.4100, L506.0400, L501.9520, L509.1000, L500.2500 #### [facility] [address] [place], [address] GAP 10 Normal 5-15 [facility] Comment on above: Performed By: #### L 501.71094, L500.4100, L506.0400, L501.9520, L509.1000, L500.2500 #### [facility] [address] [place], [address] GFR/1.73 sq M.predicted among non-blacks MDRD (S/P/Bld) [Vol rate/Area] 93 mL/min/{1.73_m2} Normal >60 [facility] Comment on above: Result Comment: mL/m in/1.73m2 CKD-EPI Creatinine Equation (2020) Performed By: #### L 501.00437, L500.4100, L506.0400, L501.9520, L509.1000, L500.2500 #### [facility] [address] [place], [address] Glucose [Mass/Vol] 98 mg/dL Normal 70-99 [facility] Comment on above: Performed By: #### L 501.02519, L500.4100, L506.0400, L501.9520, L509.1000, L500.2500 #### [facility] [address] [place], [address] Potassium [Moles/Vol] 4.3 mmol/L Normal 3.3-5.1 [facility] Comment on above: Performed By: #### L 501.01516, L500.4100, L506.0400, L501.9520, L509.1000, L500.2500 #### [facility] [address] [place], [address] Sodium [Moles/Vol] 142 mmol/L Normal 133-145 [facility] Comment on above: Performed By: #### L 501.36442, L500.4100, L506.0400, L501.9520, L509.1000, L500.2500 #### [facility] [address] [place], [address] Urea nitrogen [Mass/Vol] 15 mg/dL Normal 4-19 [facility] Comment on above: Performed By: #### L 501.33663, L500.4100, L506.0400, L501.9520, L509.1000, L500.2500 #### [facility] [address] [place], [place], [id number] Calculated very low density lipoprotein (VLDL) cholesterol measurementOrdered By: Ced Nixon on 10-02-2024 Calculated very low density lipoprotein (VLDL) cholesterol measurement 30 mg/dL 5-40 [facility] Carbon dioxide, total [Moles /volume] in Central venous bloodOrdered By: Ced Nixon on 10-02-2024 CO2 [Moles/Vol] 27.2 mmol/L 21.0-32.0 [facility] Chloride assayOrdered By: Selvin Nixon on 10-02-2024 Chloride [Moles/Vol] 105 mmol/L 98-108 [facility] Free T3on 10-02-2024 Free T3 [Mass/Vol] 3.0 pg/mL Normal 2.18-3.98 [facility] Comment on above: Performed By: #### L 501.13281, L500.4100, L506.0400, L501.9520, L509.1000, L500.2500 #### [facility] [address] [place], [place], [id number] Free J3Ghnjhum By: Ced skinner on 10-02-2024 Free T3 [Mass/Vol] 3.0 pg/mL 2.18-3.98 [facility] Glomerular filtration rate ( GFR) estimation/1.73 sq m using serum, plasma, or whole bOrdered By: Ced Nixon on 10-02-2024 GFR/1.73 sq M.predicted among non-blacks MDRD (S/P/Bld) [Vol rate/Area] 93 mL/min/{1.73_m2} >60 [facility] Comment on above: mL/min/1.73m2 CKD-EP I Creatinine Equation (2020) LDL calc ser/plasOrdered By: Ced Nixon on 10-02-2024 Cholesterol in LDL [Mass/Vol] 108 mg/dL [facility] Comment on above: Ztyuykissv=297-375 m g/dL & Higher Ssey=365 mg/dL or greater Lipid Profileon 10-02-2024 CHOL:HDL 4.35 Normal [facility] Comment on above: Performed By: #### L 501.95542, L500.4100, L506.0400, L501.9520, L509.1000, L500.2500 #### [facility] [address] [place], [address] Cholesterol [Mass/Vol] 178 mg/dL Normal <=200 [facility] Comment on above: Result Comment: Chol esterol level, Desirable <200 mg/dL Borderline high cholesterol 200-239 mg/dL High cholesterol >=240 mg/dL Recommendations of the NCEP Adult Treatment Panel for the following risk-cutoff thresholds for the [place] population. Performed By: #### L 501.21507, L500.4100, L506.0400, L501.9520, L509.1000, L500.2500 #### [facility] [address] [place], [address] Cholesterol in HDL [Mass/Vol] 41 mg/dL Normal [facility] Comment on above: Result Comment: Jennifer onal Cholesterol Education Program (NCEP) guidelines: <40 mg/dL: Low HDL-cholesterol (major risk factor for CHD) >= 60 mg/dL: High HDL-cholesterol (negative risk factor for CHD) HDL-cholesterol is affected by a number of factors, e.g. smoking, exercise, hormones, sex and age. Performed By: #### L 501.48827, L500.4100, L506.0400, L501.9520, L509.1000, L500.2500 #### [facility] [address] [place], [address] Cholesterol in LDL [Mass/Vol] 108 mg/dL Normal [facility] Comment on above: Result Comment: Bord eemdft=536-972 mg/dL Higher Pllx=414 mg/dL or greater Performed By: #### L 501.18118, L500.4100, L506.0400, L501.9520, L509.1000, L500.2500 #### [facility] [address] [place], [address] Cholesterol in VLDL [Mass/Vol] 30 mg/dL Normal 5-40 [facility] Comment on above: Performed By: #### L 501.18947, L500.4100, L506.0400, L501.9520, L509.1000, L500.2500 #### [facility] [address] [place], [address] Triglyceride [Mass/Vol] 148 mg/dL Normal [facility] Comment on above: Result Comment: The drugs N-Acetylcysteine and Metamizole may falsely depress this assay. Normal range: <150 mg/dL Borderline High: 150-199 mg/dL High: 200-499 mg/dL Very High: >500 mg/dL Performed By: #### L 501.40244, L500.4100, L506.0400, L501.9520, L509.1000, L500.2500 #### [facility] [address] [place], [address] PTHINon 10-02-2024 PTH 77 pg/mL High 11-61 [facility] Comment on above: Performed By: #### L 501.83428, L500.4100, L506.0400, L501.9520, L509.1000, L500.2500 #### [facility] [address] [place], [address] Potassium measurement (mass/ volume)Ordered By: Ced Nixon on 10-02-2024 Potassium (Unsp spec) [Mass/Vol] 4.3 mmol/L 3.3-5.1 [facility] Screening total cholesterol/ high density lipoprotein (HDL) cholesterol ratioOrdered By: Ced Nixon on 10-02-2024 Cholesterol.total/Ch olesterol in HDL [Mass ratio] 4.35 {ratio} [facility] Serum creatinine measurement (mass/volume)Ordered By: Ced Nixon on 10-02-2024 Creatinine [Mass/Vol] 1.13 mg/dL 0.70-1.20 [facility] Serum glucose measurement (m ass/volume)Ordered By: Ced Nixon on 10-02-2024 Glucose [Mass/Vol] 98 mg/dL 70-99 [facility] Serum or plasma calcium marva urement (mass/volume)Ordered By: Ced Nixon on 10-02-2024 Calcium [Mass/Vol] 9.3 mg/dL 7.6-11.0 [facility] Serum or plasma cholesterol in HDL measurement (mass/volume)Ordered By: Ced Nixon on 10-02-2024 Cholesterol in HDL [Mass/Vol] 41 mg/dL >40 [facility] Comment on above: National Cholesterol Education Program (NCEP) guidelines:<40 mg/dL: Low HDL-cholesterol (major risk factor for CHD)>= 60 mg/dL: High HDL-cholesterol (negative risk factor for CHD)HDL-cholesterol is affected by a number of factors, e.g. smoking, exercise, hormones, sex and age. Serum or plasma cholesterol measurement (mass/volume)Ordered By: Ced Nixon on 10-02-2024 Cholesterol [Mass/Vol] 178 mg/dL <201 [facility] Comment on above: Cholesterol level, D esirable <200 mg/dLBorderline high cholesterol 200-239 mg/dLHigh cholesterol >=240 mg/dLRecommendations of the NCEP Adult Treatment Panel for the following risk-cutoff thresholds for the [place] population. Serum or plasma urea nitroge n measurement (mass/volume)Ordered By: Ced Nixon on 10-02-2024 Urea nitrogen [Mass/Vol] 15 mg/dL 4-19 [facility] Sodium levelOrdered By: Ced Nixon on 10-02-2024 Sodium [Moles/Vol] 142 mmol/L 133-145 [facility] T4 Free Directon 10-02-2024 T4 FREE DIRECT 1.50 ng/dL High 0.76-1.46 [facility] Comment on above: Performed By: #### L 501.91589, L500.4100, L506.0400, L501.9520, L509.1000, L500.2500 #### [facility] [address] [place], [place], [address] T4 freeOrdered By: Ced skinner on 10-02-2024 Free T4 [Mass/Vol] 1.50 ng/dL High 0.76-1.46 [facility] TSH DL <= 0.005 mIU/L QnOrde red By: Ced Nixon on 10-02-2024 TSH Qn 2.250 uIU/mL 0.300-4.20 0 [facility] Thyroid Stim Hormone (TSH)on 10-02-2024 TSH 2.250 uIU/mL Normal 0.300-4.20 0 [facility] Comment on above: Performed By: #### L 501.63779, L500.4100, L506.0400, L501.9520, L509.1000, L500.2500 #### [facility] [address] [place], [place], [id number] Triglycerides measurementOrd ered By: Ced Nixon on 10-02-2024 Triglyceride [Mass/Vol] 148 mg/dL <199 [facility] Comment on above: The drugs N-Acetylcy steine and Metamizole may falsely depress this assay. Normal range: <150 mg/dLBorderline High: 150-199 mg/dLHigh: 200-499 mg/dLVery High: >500 mg/dL CNPWendi 08-18-2024 IRAJ Telephone (MOLLY) HANNAH ALBRIGHT ([id number]) 89 M Date Time Provider Department 08/18/24 [...] Encounter Status:Closed by LEILA GRANADOS on 08/18/24 [facility] CNOVon 11-01-2023 CNOV Office Visit (ENSUMN ) HANNAH ALBRIGHT ([id number]) 89 M Date Time Provider Department 11/01/23 2:45 PM JACQUIE FELIPE During your visit today, we recorded the following information about you: Pulse Blood pressure Weight Height 80/minute 141/85 75.5 kg 1.855 m Missy Brewster OCCA 11/01/2023 2:40 PM Signed Thank you for choosing the [facility] Department of Endocrinology, Diabetes and Metabolism. Did you know that you need to call 48 hours in advance of your scheduled visit, if you are unable to make your appointment? [facility] thanks you for your commitment, because patients not showing to their appointment results in a lost opportunity for patients to receive [place] [place] [facility] at the [facility]. To Cancel an appointment, please choose one of the following: - Call the Appointment Call Center at [phone] - From [employer], Go to Appointments - Cancel Appts If cancelling, consider your need to reschedule to prevent further delays in your care. To Schedule an appointment, please choose one of the following: - Call the Appointment Call Center at [phone] - From [employer], Go to Appointments - Request an Appt [...] [C73] Order(s):US THYROID/PARATHYROID (POC) ENDO USE ONLY [4003079] Order #: [id number]. #:[id number]: 1 Prescriptions as of 11/03/2023 - cholecalciferol, [...] your clinician: Thank you for choosing the [facility] Department of Endocrinology, Diabetes and Metabolism. Did you know that you need to call 48 hours in advance of your scheduled visit, if you are unable to make your appointment? [facility] thanks you for your commitment, because patients not showing to their appointment results in a lost opportunity for patients to receive [facility] [place] [facility] at the [facility]. To Cancel an appointment, please choose one of the following: - Call the Appointment Call Center at [phone] - From [employer], Go to Appointments - Cancel Appts If cancelling, consider your need to reschedule to prevent further delays in your care. To Schedule an appointment, please choose one of the following: - Call the Appointment Call Center at [phone] - From [employer], Go to Appointments - Request an Appt Disposition: Return in about 1 year (around 10/31/2024). Follow-up and Disposition History for Encounter Date Provider Department Center 11/01/2023 Sina HAND (more content not included)... Normal [facility] US Thyroid glandon [facility] Radiology Study observation (narrative) [facility] TSH SerPl-aCncon 10-30-2023 TSH Qn 2.000 m[IU]/L Normal 0.270-4.20 0 [facility] Comment on above: Order Comment: Speci men Type: BLOOD SPECIMEN Ordering Facility: [facility] Address: [address] [place] [address] Performed By: #### 3 016-3 #### [facility] CLIA [id number] [address] [place] [address] [place] [address] [place] Basophil percentageon 2022 Chloride [Moles/Vol] 105 mmol/L 98-107 [facility] Cholesterol [Mass/Vol] 187 mg/dL <200 [facility] Comment on above: <200 mg/dL Desirable 200-240 mg/dL Borderline >240 mg/dL High Risk Glucose [Mass/Vol] 129 mg/dL 74-106 [facility] Comment on above: Fasting Glucose resu lt greater than or equal to 126 mg/dL suggests DIABETES MELLITUS per A.D.A. criteria. Potassium [Moles/Vol] 3.9 mmol/L 3.5-5.1 [facility] Sodium [Moles/Vol] 139 mmol/L 136-145 [facility] Triglyceride [Mass/Vol] 68 mg/dL <199 [facility] Comment on above: The drugs N-Acetylcy steine and Metamizole may falsely depress this assay.Serum Triglycerides Reference Interval Normal <150 mg/dL Borderline high 150 - 199 mg/dL High 200 - 499 mg/dL Very High > or = 500 mg/dL Laboratory - Chemistry and C hemistry - challengeon 07-20-2022 CO2 [Moles/Vol] 31.0 mmol/L 21.0-32.0 [facility] Free T4 [Mass/Vol] 1.10 ng/dL 0.76-1.46 [facility] Urea nitrogen/Creatinine [Mass ratio] 13.1 mg/mg 10-20 [facility] No Panel Informationon 07-20 Estimated GFR (MDRD) Amer 95 mL/min >60 [facility] Comment on above: GFR Calc Estimated GFR (MDRD) Non-Af Amer 78 mL/min >60 [facility] Comment on above: Non- GFR Calc Free Triiodothyronine (T3) pg/dL 3.0 pg/mL 2.18-3.98 [facility] Thyroglobulin Antibody < 1.0 IU/mL 0.0-0.9 [facility] Comment on above: Thyroglobulin Antibo dy measured by CeloNovaMethodologyPerformed at: - [facility] [address] [id number] Director: Yash Hancock PhD, Phone: [phone] Thyroid Stimulating Hormone (TSH) 2.67 uIU/mL 0.358-3.74 [facility] Serum or plasma calcium marva urement (mass/volume)on 07-20-2022 Calcium [Mass/Vol] 9.7 mg/dL 8.5-10.1 [facility] Serum or plasma cholesterol in HDL measurement (mass/volume)on 07-20-2022 Cholesterol in HDL [Mass/Vol] 51 mg/dL >40 [facility] Comment on above: The drugs N-Acetylcy steine and Metamizole may falsely depress this assay. Reference Range HDL <40 mg/dL Low HDL Cholesterol HDL >or= 60 mg/dL High HDL Cholesterol Serum or plasma cholesterol in VLDL measurement (mass/volume)on 07-20-2022 Cholesterol in VLDL [Mass/Vol] 14 mg/dL 5-40 [facility] Serum or plasma creatinine m easurement (mass/volume)on 07-20-2022 Creatinine [Mass/Vol] 1.22 mg/dL 0.70-1.30 [facility] Comment on above: The validity of the calculated GFR & GFRAA in patients over 70 years has not been determined. Clinical correlation is essential. Serum or plasma low density lipoprotein (LDL) cholesterol measurement (mass/volume)on 07-20-2022 Cholesterol in LDL [Mass/Vol] 122 mg/dL 0-130 [facility] Serum or plasma urea nitroge n measurement (mass/volume)on 07-20-2022 Urea nitrogen [Mass/Vol] 16 mg/dL 7-18 [facility] Thin prep Papanicolaou smear with manual screeningon 07-20-2022 Thin prep Papanicolaou smear with manual screening 3 5-15 [facility] PROGRESSon 12-23-2018 PROGRESS HNO ID: [id number] Author: Sal Pisano (Fel) Service: Endocrine Surgery [...] Sal Pisano MD, MPH Endocrine Surgery Fellow [facility] ANES Gaby 12-22-2018 ANES POST HNO ID: [id number] Author: Sergio Romero Service: Anesthesiology Author Type: [...] 22, 2018 TIME: 4:41 PM PAGER/CONTACT #: [phone] [facility] ANES PREOPon 12-22-2018 ANES PREOP HNO ID: [id number] Author: Sergio Romero Service: Anesthesiology Author Type: [...] injection (XYLOCAINE) 0.1-0.2 mL INTRADERMAL PRN Jacquie Siperstein - lactated ringers infusion 75 mL/hr INTRAVENOUS [...] December 22, 2018 TIME: 12:55 PM CSN: [id number] [facility] NURSING PROGon 12-22-2018 NURSING PROG HNO ID: [id number] Author: Shireen HuertaRnMagdaleno Mclain RN Service: ? Author Type: Registered Nurse Type: Nursing Progress Note Filed: 12/22/2018 4:56 PM Note Text: Nursing Progress Note Patient Name: Hannah Albright Patient Location: [id number] Daily Note:1640 - Arrived from PACU via bed. HOB up 30 degrees. SCDs on. Patient aware to splint when coughing. Parents present. Cot ordered. This note was completed by: Shireen Mclain RN [facility] OPERATIVE NOon 12-22-2018 OPERATIVE NO HNO ID: [id number] Author: Jacquie Felipe Service: Endocrine Surgery Author Type: Physician Type: Operative Report Filed: 12/25/2018 5:37 PM Note Text: [facility] - Operative Report HANNAH ALBRIGHT : 2000 AGE: 18. SEX: M PATIENT TYPE: A HOSP SV: [facility] LOCATION: [facility] ATTENDING PHYSICIAN: Jacquie Felipe MD CSN NUMBER: [id number] DATE OF SURGERY/PROCEDURE: 12/22/2018 INCISION/PROCEDURE START TIME: 1353 hours. INCISION CLOSE/PROCEDURE END TIME: Completion of skin closure, 1454 hours. PREOPERATIVE DIAGNOSIS: Suspected papillary thyroid cancer of the left thyroid lobe. POSTOPERATIVE DIAGNOSIS: Suspected papillary thyroid cancer of the left thyroid lobe. SURGEON: Jacquie Felipe MD OR DIRECTOR: Dr. Sal Pisano. SURGERY/PROCEDURE: Left thyroid lobectomy and isthmusectomy, intraoperative ultrasonography. ANESTHESIA: General. [facility] . COMPLICATIONS: None. ESTIMATED BLOOD LOSS: [...] Re-review of those slides here at the [facility] was suspicious for papillary thyroid cancer. At the time of his consultation at the [facility], ultrasound had demonstrated a 2 cm contained [...] hyperextended. Ultrasound evaluation was performed using an [employer] Alpha 6 ultrasound machine with high-frequency linear [...] Sal Pisano was asked to serve as first cook. She provided assistance with mobilization, vascular division, and closure. DRAINS: None. Jacquie Felipe MD :[id number] /[id number] cc: [facility] PROGRESSon 12-22-2018 PROGRESS HNO ID: [id number] Author: Sal Pisano (Fel) Service: Endocrine Surgery [...] reassess tomorrow. Plan for discharge home tomorrow. [facility] PROGRESS HNO ID: [id number] Author: Sal Pisano (Fel) Service: Endocrine Surgery [...] Dr. Felipe has updated the patient's family. [facility] PT EDon 12-22-2018 PT ED HNO ID: [id number] Author: Ronda (Rn) RAQUEL Armstrong Service: ? Author Type: Registered [...] Signed By: Ronda Armstrong RN In Department: [facility] SURGERY [facility] SURGICAL PATHOLOGYon 019 SURGICAL PATHOLOGY Specimen #: [id number] Submitting Physician: JACQUIE FELIPE FINAL DIAGNOSIS [...] The pathologic stage is pT1b pNX. Dr. Nolan Arora was consulted and he agrees with [...] cm. It approximates the inked capsular surface. Management Architect sections are submitted as follows: A1 superior aspect, left thyroid lobe; A2-A5 entire nodule, left thyroid lobe; A6 section of isthmus. JOURDAN/db 12/23/2018 Gross examination performed at [facility], [facility] [place] [address] Date of Report: 12/28/2018 Date of Procedure: 12/22/2018 Date of Receipt: 12/22/2018 Submitted by: [facility] Diagnostic interpretation performed at [facility] [place] [address]. [place] Number: [id number] [facility] [facility] HOSPon 12-13-2018 HOSP Patient:Yudy Albright MRN: Height:6' [...] 39.0 Progress Notes (ENDO SURG MAIN): Kiarra Saini RN, RN 12/21/2018 9:24 AM Signed AMBULATORY [...] AM Signed Thank you for choosing the [facility] Department of Endocrinology, Diabetes and Metabolism. Being able to provide excellent health care has allowed us to be # 3 in the country according to [employer]. Did you know that you need to call 48 hours in advance of your scheduled visit, if you are unable to make your appointment? [facility] thanks you for your commitment, because patients not showing to their appointment results in a lost opportunity for patients to receive world class health care at the [facility]. To Cancel an appointment, please choose one of the following: - Call the Appointment Call Center at [phone] - From [employer], Go to Appointments ? Cancel Appts If cancelling, consider your need to reschedule to prevent further delays in your care. To Schedule an appointment, please choose one of the following: - Call the Appointment Call Center at [phone] - From [employer], Go to Appointments ? Request an Appt Prvaeen Urrutia MD, MD 12/21/2018 9:13 AM Sign [...] thyroid lobectomy. Consent signed Jacquie Felipe MD [facility] Non-Boiler Inspector Cytology Reporton Non-Boiler Inspector Cytology Report . Pathology Reports Accession: Collected Date/Time: Received Date/Time: Pathologist: [id number] 08/03/2018 11:00 EDT 08/03/2018 11:47 EDT SAADIA DENT MD Non-Boiler Inspector Cytology Report CLINICAL INFORMATION: LEFT LOBE THYROID MASS DIAGNOSIS: NUMEROUS FOLLICULAR CELLS PRESENT FAVOR NODULAR HYPERPLASIA. SPECIMEN: LEFT THYROID FNA GROSS DESCRIPTION: # of Blocks: 1 # of Monolayers: 1 # of Smears: 8 Volume (ml) 40 Color: FIXED RED FLUID Electronically Signed by Pathology report verified by [facility] Screened by: PATTI DW Electronically signed by SAADIA DENT Sign-Out Date: 08/04/2018 11:06 Performing Lab: [facility], [address] [place] [address] ([place]) Comment on above: Performed By: #### N GCR #### [address] [address] APTTon 08-03-2018 aPTT Coag time (Bld) Unknown Normal [facility] ([place]) Comment on above: Performed By: #### P LT, FIB, APTT, PRO #### [place] [address] aPTT Coag time (Bld) 31.7 s Normal 25.0-35.0 [facility] ([place]) Comment on above: Result Comment: For Heparin anticoagulation therapy, the recommended therapeutic range is: 54-77 seconds (APTT Correlation with Anti-Xa therapeutic range of 0.3-0.7 units/ml). PLEASE REFERENCE THE PHARMACY PROTOCOL FOR DOSING. Performed By: #### P LT, FIB, APTT, PRO #### [place] [address] FIBon 08-03-2018 Fibrinogen 313 mg/dL Normal 250-550 [facility] ([place]) Comment on above: Performed By: #### P LT, FIB, APTT, PRO #### [place] [address] PLTon 08-03-2018 Platelets #/vol (Bld) 296 10 3/mcL Normal 150-450 [facility] ([place]) Comment on above: Performed By: #### P LT, FIB, APTT, PRO #### [place] [address] PROon 08-03-2018 INR Coag RelTime (PPP) 1.0 {INR} Normal [facility] ([place]) Comment on above: Result Comment: The [employer] (CHEST, 1992, 102:312S-25S) recommended therapeutic range for oral anticoagulant therapy is: LOW RISK: Prophylaxis of venous thrombosis INR: 2.0-3.0 Treatment of pulmonary embolism 2.0-3.0 Prevention of systemic embolism 2.0-3.0 HIGH RISK: Mechanical prosthetic valves 2.5-3.5 Performed By: #### P LT, FIB, APTT, PRO #### [place] [address] Prothrombin time (PT) Coag time (PPP) 12.3 s Normal 9.0-14.6 [facility] ([place]) Comment on above: Result Comment: Effe ctive 10/25/07, Protime results may be affected by some antibiotics (i.e. Ciprofloxacin, Azithromycin, Bactrim) which may potentiate the action of oral anticoagulants, with further increases in Protime/INR. Performed By: #### P LT, FIB, APTT, PRO #### [place] [address] US BIOPSY THYROID FNAon 07-12 US BIOPSY [...] PM Sign Date: 08/03/2018 4:29:35 PM Normal [facility] ([place]) US THYROIDon 08-03-2018 US THYROID ORIGINAL US [...] AM Sign Date: 08/03/2018 3:54:48 PM Normal [facility] ([place]) Vital Signs Date Time Vital Sign Value Performing Clinician Ricco polk 11-01-2023 14:41-0400 Body height 185.5 cm Jacquie Felipe MD Work Phone: [facility] 11-01-2023 14:41-0400 Body mass index (BMI) [Ratio] 21.95 kg/m2 Jacquie Felipe MD Work Phone: [facility] 11-01-2023 14:41-0400 Body weight 75.52 kg Jacquie Felipe MD Work Phone: [facility] 11-01-2023 14:41-0400 Diastolic blood pressure 85 mm[Hg] Jacquie Felipe MD Work Phone: [facility] 11-01-2023 14:41-0400 Heart rate 80 /min Jacquie Felipe MD Work Phone: [facility] 11-01-2023 14:41-0400 Systolic blood pressure 141 mm[Hg] Jacquie Felipe MD Work Phone: [facility] Encounters Encounter Date Encounter Type Care Provider Facility Start: 10-25-2024 End: 10-25-2024 Orders Only Jacquie Felipe MD Work Phone: Endocrine Surgery Comment on above: Papillary thyroid ca rcinoma (HCC) (Primary Dx) Start: 10-05-2024 Encounter for genera l adult medical examination without abnormal findings [facility] Start: 10-02-2024 End: 10-02-[address] Ced Nixon MD Work Phone: [facility] Work Phone: Start: 10-02-2024 End: 10-02-[address] Ced Nixon MD -Laboratory Work Phone: Start: 10-02-2024 End: 10-02-2024 ambulatory Ced Nixon Facility:[facility] Start: 08-18-2024 End: 08-18-2024 Telephone encounter Jacquie [...] carcinoma (HCC) Start: 11-01-2023 End: 11-01-2023 ambulatory JACQUIE FELIPE Facility:[facility] Start: 10-30-2023 End: 10-30-2023 ambulatory JACQUIE FELIPE Facility:[facility] Start: 10-26-2023 Orders Only Jacquie castelan MD Work Phone: Endocrine Surgery Comment on above: Papillary thyroid ca rcinoma (HCC) (Primary Dx) Start: 08-04-2022 End: 08-04-2022 ambulatory [facility] Work Phone: Start: 08-04-2022 End: 08-04-2022 Patient encounter procedure [facility]Ultrasound, [facility] Start: 07-30-2022 ambulatory Jacquie castelan MD Work Phone: Endocrine Surgery Comment on above: Results Start: 07-21-2022 Telephone encounter Jacquie lindquist MD Work Phone: Endocrine Surgery Comment on above: Results Start: 07-20-2022 End: 07-20-2022 Orders Only Jacquie Felipe MD Work Phone: Endocrine Surgery Comment on above: Papillary thyroid ca rcinoma (HCC) (Primary Dx) Start: 07-20-2022 End: 07-20-2022 Patient encounter procedure [facility]-Laboratory Start: 03-26-2022 Refill Grayson Archuleta MD Work Phone: Endocrine Surgery Comment on above: Refill Request Start: 08-03-2018 End: 08-04-2018 Patient encounter procedure [facility] Facility:A Procedures Date Procedure Procedure Detail Performing Clinician Start: 10-02-[address] Ced Nixon MD Work Phone: Start: 11-01-2023 Us soft tissue head & neck real time imge hung Felipe MD Work Phone: Start: 08-04-2022 Ultrasound of scrotu m with Doppler and color flow imaging Plan of Treatment Date Care Activity Detail Author Start: 07-17-2032 Urine microalbumin profile DTaP,Tdap,Td Vaccine (9 - Td or Tdap) [facility] Start: 12-11-2024 Influenza vaccination C [facility] Start: 10-30-2024 End: 10-30-2024 Patient encounter procedure 10/30/2024 3:40 PM EDT Office Visit Endocrine Surgery [address] [place] [address] Jacquie Felipe MD [address] [address] Annual Thyroid follow up Endocrine Surgery Comment on above: Annual Thyroid follo w up Start: 10-26-2024 End: 01-25-2025 Thyrotropin [Units/volume] in Serum or Plasma THYROID STIMULATING HORMONE Lab Routine Papillary thyroid carcinoma (HCC) Expected: 10/26/2024, Expires: 01/25/2025 [facility] Work Phone: Comment on above: Expected: 10/26/2024 , Expires: 01/25/2025 Start: 09-11-2024 End: 12-11-2024 Thyrotropin [Units/volume] in Serum or Plasma THYROID STIMULATING HORMONE Lab Routine Thyroid cancer (HCC) Expected: 09/11/2024, Expires: 12/11/2024 [facility] Work Phone: Comment on above: Expected: 09/11/2024 , Expires: 12/11/2024 Start: 12-12-2023 Covid-19 Vaccine ( season) Covid-19 Vaccine ( season) [facility] Start: 12-12-2023 Influenza vaccination Influenza Vacc ine (#1) [facility] Start: 11-01-2023 End: 11-01-2023 Patient encounter procedure 11/01/2023 2:45 PM EDT Office Visit Endocrine Surgery [address] [place] [address] Jacquie Felipe MD [address] [facility] [address] [place] [address] My chart request - follow up Endocrine Surgery Comment on above: My chart request - f ollow up Start: 10-27-2023 End: 01-26-2024 Thyrotropin [Units/volume] in Serum or Plasma THYROID STIMULATING HORMONE Lab Routine Papillary thyroid carcinoma (HCC) Expected: 10/27/2023 (Approximate), Expires: 01/26/2024 [facility] Work Phone: Comment on above: Expected: 10/27/2023 (Approximate), Expires: 01/26/2024 Start: 04-12-2023 Behavioral Health Screening Behavioral Health Screening [facility] Start: 12-11-2022 Covid-19 Vaccine () Covid-19 Vaccine () [facility] Start: 12-11-2022 Influenza vaccination INFLUENZ A (Season Ended) [facility] Start: 04-12-2022 DEPRESSION ASSESSMENT DEPRESSION ASS ESSMENT [facility] Start: 12-11-2021 Influenza vaccination INFLUENZA (#1) [facility] Start: 06-07-2021 COVID-19 VACCINE (5 - Booster) COVID-19 VACCINE (5 - Booster) [facility] Start: 11-05-2020 COVID-19 VACCINE (3 - Booster for Pfizer series) COVID-19 VACCINE (3 - Booster for Pfizer series) [facility] Start: 09-11-2020 Urine microalbumin profile DTAP,TDAP,TD (7 - Td or Tdap) [facility] Start: 08-13-2017 Anxiety Screening Anxiety Screening [facility] Start: 08-13-2017 Depression Screening Depression Scre ening [facility] Start: 08-13-2017 HEPATITIS C SCREENING HEPATITIS C [facility] Start: 08-13-2017 Hepatitis C screening Hepatitis C [facility] Start: 08-13-2017 HIV SCREENING HIV SCREENING [facility] Start: 08-13-2017 HIV screening HIV Screening [facility] Start: 2015 Meningococcal B Vacc ine: Consider Based On Risk (1 of 2 - Patient Seeks Protection) Meningococcal B Vaccine: Consider Based On Risk (1 of 2 - Patient Seeks Protection) [facility] Start: 08-13-2014 HPV Vaccine (1 - Mal e 3-dose series) HPV Vaccine (1 - Male 3-dose series) [facility] Start: 08-13-2013 PEDS TO ADULT TRANSI TION ANNUAL ASSESSMENT PEDS TO ADULT TRANSITION ANNUAL ASSESSMENT [facility] Start: 2011 PEDS TO ADULT TRANSI TION INITIAL DISCUSSION PEDS TO ADULT TRANSITION INITIAL DISCUSSION [facility] Start: 08-13-2010 HPV VACCINE (1 - Mal e 2-dose series) HPV VACCINE (1 - Male 2-dose series) [facility] Start: 08-13-2009 MENINGOCOCCAL B: Consider based on risk (1 of 2 - Risk Bexsero 2-dose series) MENINGOCOCCAL B: Consider based on risk (1 of 2 - Risk Bexsero 2-dose series) [facility] Start: 08-13-2008 HPV Vaccine (1 - Ris k male 3-dose series) HPV Vaccine (1 - Risk male 3-dose series) [facility] US THYROID/PARATHYRO ID (POC) ENDO USE ONLY US THYROID/PARATHYROID (POC) ENDO USE ONLY Imaging Diagnostic Routine Papillary thyroid carcinoma (HCC) Ordered: 07/20/2022 [facility] Work Phone: Comment on above: Ordered: 07/20/2022 [facility] c Immunizations Immunization Date Immunization Notes Care Provider Fa [facility] 01-07-2017 meningococcal polysaccharide (groups A, C, Y and W-135) diphtheria toxoid conjugate vaccine (MCV4P) Grayson Archuleta MD Work Phone: [facility] 10-21-2011 varicella virus vaccine Grayson Archuleta MD Work Phone: [facility] 09-11-2010 hepatitis A vaccine, unspecified formulation Grayson Archuleta MD Work Phone: [facility] Work Phone: 09-11-2010 Meningococcal, MCV4, unspecified conjugate formulation(groups A, C, Y and W-135) Grayson Archuleta MD Work Phone: [facility] Work Phone: 09-11-2010 tetanus toxoid, redu ar diphtheria toxoid, and acellular pertussis vaccine, adsorbed Grayson Archuleta MD Work Phone: [facility] Work Phone: 06-25-2008 hepatitis A vaccine, unspecified formulation Grayson Archuleta MD Work Phone: [facility] 11-24-2004 diphtheria, tetanus toxoids and acellular pertussis vaccine Grayson Archuleta MD Work Phone: [facility] Work Phone: 11-24-2004 haemophilus influenz ae type b vaccine, HbOC conjugate Grayson Archuleta MD Work Phone: [facility] Work Phone: 11-24-2004 measles, mumps and rubella virus vaccine Grayson Archuleta MD Work Phone: [facility] Work Phone: 11-24-2004 poliovirus vaccine, inactivated Grayson Archuleta MD Work Phone: [facility] Work Phone: 03-15-2002 influenza virus vacc ine, unspecified formulation Grayson Archuleta MD Work Phone: [facility] Work Phone: 02-08-2002 influenza virus vacc ine, unspecified formulation Grayson Archuleta MD Work Phone: [facility] Work Phone: 12-24-2000 diphtheria, tetanus toxoids and acellular pertussis vaccine Grayson Archuleta MD Work Phone: [facility] Work Phone: 09-16-2000 measles, mumps and rubella virus vaccine Grayson Archuleta MD Work Phone: [facility] Work Phone: 09-16-2000 pneumococcal conjuga te vaccine, 7 valent Grayson Archuleta MD Work Phone: [facility] Work Phone: 09-16-2000 varicella virus vaccine Grayson Archuleta MD Work Phone: [facility] Work Phone: 05-27-2000 haemophilus influenz ae type b vaccine, HbOC conjugate Grayson Archuleta MD Work Phone: [facility] Work Phone: 05-27-2000 hepatitis B vaccine, pediatric or pediatric/adolescent dosage Grayson Archuleta MD Work Phone: [facility] Work Phone: 05-27-2000 poliovirus vaccine, inactivated Grayson Archuleta MD Work Phone: [facility] Work Phone: 02-24-2000 diphtheria, tetanus toxoids and acellular pertussis vaccine Grayson Archuleta MD Work Phone: [facility] Work Phone: 02-24-2000 pneumococcal conjuga te vaccine, 7 valent Grayson Archuleta MD Work Phone: [facility] Work Phone: 1999 diphtheria, tetanus toxoids and acellular pertussis vaccine Grayson Archuleta MD Work Phone: [facility] Work Phone: 1999 haemophilus influenz ae type b vaccine, HbOC conjugate Grayson Archuleta MD Work Phone: [facility] Work Phone: 1999 pneumococcal conjuga te vaccine, 7 valent Grayson Archuleta MD Work Phone: [facility] Work Phone: 1999 poliovirus vaccine, inactivated Grayson Archuleta MD Work Phone: [facility] Work Phone: 1999 diphtheria, tetanus toxoids and acellular pertussis vaccine Grayson Archuleta MD Work Phone: [facility] Work Phone: 1999 haemophilus influenz ae type b vaccine, HbOC conjugate Grayson Archuleta MD Work Phone: [facility] Work Phone: 1999 pneumococcal conjuga te vaccine, 7 valent Grayson Archuleta MD Work Phone: [facility] Work Phone: 1999 poliovirus vaccine, inactivated Grayson Archuleta MD Work Phone: [facility] Work Phone: 1999 hepatitis B vaccine, pediatric or pediatric/adolescent dosage Grayson Archuleta MD Work Phone: [facility] Work Phone: 1999 hepatitis B vaccine, pediatric or pediatric/adolescent dosage Grayson Archuleta MD Work Phone: [facility] Work Phone: Payers Date Payer Category Payer Self-pay [id number] 2023 [employer] Blue Shield BLUE CARD PPO OOS [id number] 2022 Private Health Insurance SONNY Sina [place] [facility] [employer] [id number] 2022-Present [phone] [address] [place] [address] PPO [id number] 2019 Unknown [id number] 2018 Unknown [id number] 2011 Unknown [place] [id number] 2011 Unknown [id number] 1999 Unknown [id number] Unknown [facility] [id number] Unknown [id number] Social History Date Type Detail Facility Start: 07-12-2018 End: 07-20-2022 Tobacco smoking status NHIS Never smoked tobacco [facility] Work Phone: Start: 07-12-2018 End: 07-20-2022 Tobacco use and exposure Smokeless tobacco non-user [facility] Work Phone: Start: 10-28-2020 End: 11-01-2023 Alcohol intake Not Asked [facility] Start: 1999 Sex Assigned At Not on file C [facility] Start: 07-12-2018 Tobacco smoking stat us MOIS Unknown if ever smoked [facility] Start: 1999 Sex Assigned At Male [facility] Start: 07-20-2022 End: 11-01-2023 History of Social function [facility] Start: 07-20-2022 End: 11-01-2023 Tobacco use panel [facility] PHQ2 Score 0 [facility] Functional Status Date Assessment Result Facility 12-23-2018 Are you deaf, or do you have serious difficulty hearing No 12/23/2018 8:04 AM Shireen Etienne RN No [facility] 12-23-2018 Are you blind, or do you have serious difficulty seeing, even when wearing glasses No 12/23/2018 8:04 AM Shireen Etienne RN No [facility] 12-23-2018 Do you have serious difficulty walking or climbing stairs No 12/23/2018 8:04 AM Shireen Etienne RN No [facility] 12-23-2018 Do you have difficul ty dressing or bathing No 12/23/2018 8:04 AM Shireen Etienne RN No [facility] 12-23-2018 Because of a physica l, mental, or emotional condition, do you have difficulty doing errands alone such as visiting a physician's office or shopping No 12/23/2018 8:04 AM Shireen Etienne RN No [facility] Mental Status Date Assessment Result Facility 12-23-2018 Because of a physica l, mental, or emotional condition, do you have serious difficulty concentrating, remembering, or making decisions No 12/23/2018 8:04 AM EDT Shireen Mclain RN No [facility] Clinical Notes 11-14-2018 to 08-18-2024 Telephone Encounter - Delmy Hollingsworth - 08/18/2024 4:33 PM EDTTelephone Encounter - Darrick, Delmy - 08/18/2024 4:33 PM EDTAddendum Note - Katrina Ward MD - 08/18/2024 3:39 PM EDT Note Date & Type Note Facility 08-18-2024 Telephone encount er Note Called pt and advised of one month refill. Advised that his PCP will need to monitor his labwork and refills moving forward. Pt has appt this month with PCP and voices understanding. Delmy Hollingsworth RN [facility] 08-18-2024 Miscellaneous Notes Formattin g of this [...] about one week. documented in this encounter [facility] 08-18-2024 Note Addended by: SARAH WARD on: 08/18/2024 03:39 PM Modules accepted: Orders [facility] 08-18-2024 Telephone encount er Note Pt is requesting a refill on synthroid. He hasn't see his pcp in over a year and they can't refill it. He is totally out of it for about one week. [facility] Work Phone: 11-03-2023 Note HNO ID: [id number] Author: JACQUIE FELIPE MD Service: ? Author [...] have additional questions. Sincerely, Jacquie Felipe MD [facility] 11-03-2023 History of Presen t illness [...] Jacquie Felipe MD documented in this encounter [facility] 11-01-2023 Instructions Missy Brewster [facility] - 11/01/2023 2:40 PM EDT Thank you for choosing the [facility] Department of Endocrinology, Diabetes and Metabolism. Did you know that you need to call 48 hours in advance of your scheduled visit, if you are unable to make your appointment? [facility] thanks you for your commitment, because patients not showing to their appointment results in a lost opportunity for patients to receive world class health care at the [facility]. To Cancel an appointment, please choose one of the following: - Call the Appointment Call Center at [phone] - From MyChart, Go to Appointments - Cancel Appts If cancelling, consider your need to reschedule to prevent further delays in your care. To Schedule an appointment, please choose one of the following: - Call the Appointment Call Center at [phone] - From [employer], Go to Appointments - Request an Appt documented in this encounter [facility] 07-30-2022 Nurse Note Pt. was seen on 07/20/2022 for on going follow up for papillary thyroid cancer. Pt. had o/s labs drawn @ [facility] on 07/20/2022 TSH 2.67 (0.358-3.74) TG antibody <1.0 (0.0-0.9) Thyroglobulin was not drawn. Huong Rosario RN error Pt. was seen on 07/20/2022 for on going follow up for papillary thyroid cancer documented in this encounter [facility] 07-21-2022 Miscellaneous Notes Formattin g of this note might be different from the original. 07/20 Lab Results Indexed documented in this encounter [facility] 04-13-2022 Miscellaneous Notes Formattin g of this note might be different from the original. [employer] message sent Dolores Garay RN Left message to call the office Dolores Garay RN Patient's request for medication is as follows [...] but will run out before established. Last [facility]: greater than one year ago Verify [...] Vickie Regan LPN documented in this encounter [facility] 11-14-2018 History of Past i llness Narrative Problem Noted Date Resolved Date Solitary thyroid nodule 11/14/2018 07/03/19 20 Neoplasm of uncertain behavior of skin 2 10/24/2013 documented as of this encounter (statuses as of 04/16/2022) [facility] History of Past illness Narrative* Problem Noted Date Resolved Date Solitary thyroid nodule 11/14/2018 07/03/19 20 Neoplasm of uncertain behavior of skin 2 10/24/2013 documented as of this encounter (statuses as of 07/20/2022) [facility] History of Past illness Narrative* Problem Noted Date Resolved Date Solitary thyroid nodule 11/14/2018 07/03/19 20 Neoplasm of uncertain behavior of skin 2 10/24/2013 documented as of this encounter (statuses as of 07/21/2022) [facility] History of Past illness Narrative* Problem Noted Date Resolved Date Solitary thyroid nodule 11/14/2018 07/03/19 20 Neoplasm of uncertain behavior of skin 2 10/24/2013 documented as of this encounter (statuses as of 07/21/2022) [facility] History of Past illness Narrative* Problem Noted Date Resolved Date Solitary thyroid nodule 11/14/2018 07/03/19 20 Neoplasm of uncertain behavior of skin 2 10/24/2013 documented as of this encounter (statuses as of 07/31/2022) [facility] note* Diagnosis Papillary thyroid carcinoma (HCC)- Primary Malignant neoplasm of thyroid gland documented in this encounter [facility] note* Diagnosis Papillary thyroid carcinoma (HCC)- Primary Malignant neoplasm of thyroid gland documented in this encounter [facility] noteNo assessment information availableWWright-[facility] Work Phone: Evaluation note* Diagnosis Papillary thyroid carcinoma (HCC)- Primary Malignant neoplasm of thyroid gland documented in this encounter [facility] note* Diagnosis Thyroid cancer (HCC)- Primary Malignant neoplasm of thyroid gland Papillary thyroid carcinoma (HCC) Malignant neoplasm of thyroid gland documented in this encounter [facility] note* Diagnosis Thyroid cancer (HCC)- Primary Malignant neoplasm of thyroid gland documented in this encounter [facility] note* Diagnosis Papillary thyroid carcinoma (HCC)- Primary Malignant neoplasm of thyroid gland documented in this encounter [facility] for referral (narrative)No reason for referral information availableWWright-[facility] Work Phone: Summary Purpose Family History No Family History Records FoundNo Family History Records FoundNo Family History Records FoundNo Family History Records Found Advance Directives No Advanced Directives Records FoundNo Advanced Directives Records FoundNo Advanced Directives Records FoundNo Advanced Directives Records Found Procedure Findings Note HNO ID: [id number] Author: Franny Pisano (Fel) Service: Endocrine Surgery Author Type: Fellow Type: Brief Op Note Filed: 12/22/2018 2:50 PM Note Text: BRIEF OPERATIVE / PROCEDURE NOTE LOG ID: [id number] SURGERY/PROCEDURE DATE: 12/22/2018 INCISION/PROCEDURE START TIME: 1:53 PM INCISION CLOSE/PROCEDURE END TIME: SURGEON(S)/PROCEDURALIST(S) AND OR DIRECTOR(S): Surgeon(s) and Role: * Jacquie Felipe - Primary * Du Gonzalez MD - Resident - Assisting * [...] section and content) DATE CREATED AUTHOR 08/05/2018 [facility] ([place]) DATE CREATED AUTHOR AUTHOR'S ORGANIZ ATION 12/28/2018 [facility] DATE CREATED AUTHOR AUTHOR'S ORGANIZ ATION 08/20/2024 [facility] DATE CREATED AUTHOR AUTHOR'S ORGANIZ ATION 10/06/2024 [facility] Source Comments (unrecognize d section and content) In the event this informatio n is protected by the Federal Confidentiality of Alcohol and Drug Abuse Patient Records regulations: The Federal rules restrict any use of the information to criminally investigate or prosecute any alcohol or drug abuse patient.[facility] System[facility] the event this information is protected by the Federal Confidentiality of Alcohol and Drug Abuse Patient Records regulations: The Federal rules restrict any use of the information to criminally investigate or prosecute any alcohol or drug abuse patient.[facility] SystemIn the event this information is protected by the Federal Confidentiality of Alcohol and Drug Abuse Patient Records regulations: The Federal rules restrict any use of the information to criminally investigate or prosecute any alcohol or drug abuse patient.[facility] SystemIn the event this information is protected by the Federal Confidentiality of Alcohol and Drug Abuse Patient Records regulations: The Federal rules restrict any use of the information to criminally investigate or prosecute any alcohol or drug abuse patient.[facility] SystemIn the event this information is protected by the Federal Confidentiality of Alcohol and Drug Abuse Patient Records regulations: The Federal rules restrict any use of the information to criminally investigate or prosecute any alcohol or drug abuse patient.[facility] SystemIn the event this information is protected by the Federal Confidentiality of Alcohol and Drug Abuse Patient Records regulations: The Federal rules restrict any use of the information to criminally investigate or prosecute any alcohol or drug abuse patient.[facility] SystemIn the event this information is protected by the Federal Confidentiality of Alcohol and Drug Abuse Patient Records regulations: The Federal rules restrict any use of the information to criminally investigate or prosecute any alcohol or drug abuse patient.[facility] SystemIn the event this information is protected by the Federal Confidentiality of Alcohol and Drug Abuse Patient Records regulations: The Federal rules restrict any use of the information to criminally investigate or prosecute any alcohol or drug abuse patient.[facility] SystemIn the event this information is protected by the Federal Confidentiality of Alcohol and Drug Abuse Patient Records regulations: The Federal rules restrict any use of the information to criminally investigate or prosecute any alcohol or drug abuse patient.[facility] SystemIn the event this information is protected by the Federal Confidentiality of Alcohol and Drug Abuse Patient Records regulations: The Federal rules restrict any use of the information to criminally investigate or prosecute any alcohol or drug abuse patient.[facility] Reason for Visit (unrecogniz ed section and content) Reason Comments Refill Request Reason Comments Results Reason Comments Follow Up Reason Comments Refill Request Pt is requesting a r efill on synthroid. He hasn't see his pcp in over a year and they can't refill it. He is totally out of it for about one week. Care Teams (unrecognized sec tion and content) Investor Relations Specialist Relationship Specialty Start Date End Date Grayson Archuleta MD [address], [place] [phone] PCP - General Pediatrics 01/04/17 Investor Relations Specialist Relationship Specialty Start Date End Date Grayson Archuleta MD [address], [place] [id number] PCP - General Pediatrics 01/04/17 Investor Relations Specialist Relationship Specialty Start Date End Date Grayson Archuleta MD [address], [place] [phone] PCP - General Pediatrics 01/04/17 Investor Relations Specialist Relationship Specialty Start Date End Date Grayson Archuleta MD [address], [place] [id number] PCP - General Pediatrics 01/04/17 Team Status: Active Member Role Status Dates Dr. Grayson Archuleta MD Family Provider Active Dr. Ced Nixon MD Primary Care Provider Active Team Status: Inactive Member Role Status Dates RAND DHILLON Attending Provider, Referring Provid er Active Dr. Ced Nixon MD Primary Care Provider Active Team Status: Inactive Member Role Status Dates Dr. Ced Nixon MD Primary Care Provi rena, Attending Provider, Referring Provider Active Investor Relations Specialist Relationship Specialty Start Date End Date Grayson Archuleta MD [address] [place] [id number] PCP - General Pediatrics 01/04/17 Investor Relations Specialist Relationship Specialty Start Date End Date Grayson Archuleta MD [address] [place] [id number] PCP - General Pediatrics 01/04/17 11/02/23 Team Status: Inactive Member Role Status Dates Dr. Ced Nixon MD Primary Care Provider Active Start: October 02, 2024 End: October 02, 2024 Dr. Ced Nixon MD Attending Provider Active Start: October 02, 2024 End: October 02, 2024 Dr. Ced Nixon MD Referring Provider Active Start: October 02, 2024 End: October 02, 2024 Goals (unrecognized section and content) Goals may be documented in a n alternate sectionGoals may be documented in an alternate sectionGoals may be documented in an [...] BE BASED ON THE PRIMARY CLINICAL RECORDS. [employer] [facility]. provides no warranty or guarantee of the accuracy or completeness of information in this document.
== END | disposition home or self-care (01) ==
LOC: LAB 16:29
PROVIDERS: PCP Family Medicine
DX: C73 Malignant neoplasm of thyroid gland (principal)
CPT/HCPCS: 36415; 84443

== ENCOUNTER → 2025-02-23 | Outpatient (CLI) | payer BC, SELFPAY ==
[2025-02-23 17:17] LABS: Hematocrit 43.9 % (40-54); Hemoglobin 14.7 g/dL (13.0-16.5); Immature Granulocytes Count 0.010 X10^3/uL (0.0-0.0); Mean Corp Hgb Conc 33.5 g/dL (32-36); Mean Corpuscular Volume 85.7 fL (80-94); Mean Platelet Vol. 9.0 fl (6.2-12.0); NRBC Flagged by Analyzer 0 % (0-5); Platelet Count 320 K/mm3 (150-450); RBC Distribution Width CV 12.5 % (11.6-14.6); RBC Distribution Width SD 39.2 fl (35.1-43.9); Red Blood Count 5.12 M/mm3 (4.6-6.2); White Blood Count 6.6 K/mm3 (4.4-11.0)
[2025-02-23 17:40] LABS: Anion Gap 8 (5-15); BUN 14 mg/dL (4-19); BUN/Creat Ratio 12.3 RATIO (10-20); Calcium,Total 9.8 mg/dL (7.6-11.0); Carbon Dioxide 28.2 mmol/L (21.0-32.0); Chloride 105 mmol/L (98-108); Free T3 3.3 pg/mL (2.18-3.98); Glucose 100 mg/dL (70-99); Potassium 4.1 mmol/L (3.3-5.1)
== END | disposition home or self-care (01) ==
LOC: LAB 16:40
PROVIDERS: PCP Family Medicine; Referring Provider Family Medicine; Visit Provider Family Medicine
DX: E03.9 Hypothyroidism, unspecified (principal); R53.83 Other fatigue
CPT/HCPCS: 36415; 80048; 84439; 84443; 84481; 85025